=== PATIENT | female | born 1990 | race Caucasian/White ===

== ENCOUNTER → 2020-01-23 16:46 | Outpatient (CLI) | payer MEDICAID, SELFPAY ==
[2020-01-23 20:30] LABS: Coronavirus 19 IgG Antibody Negative (Negative); Coronavirus 19 IgM Antibody Negative (Negative)
== END ==
PROVIDERS: Visit Provider Family Medicine
DX: U07.1 COVID-19 (principal)
CPT/HCPCS: 36415; 86328; U0003

== ENCOUNTER → 2020-04-27 14:24 | Outpatient (CLI) | payer OTHER, SELFPAY ==
--- NOTE | 2020-04-27 14:24 | US_ITS ---
PROCEDURE: US TRANSVAGINAL CLINICAL INDICATION: ovarian cyst COMPARISON: No exams were available for comparison FINDINGS: There has been a prior hysterectomy. The right ovary is 3.8 x 1.8 x 3.5 cm. Left ovary is 3.4 x 2 x 2.3 cm. Hypoechoic areas present in the left ovary measuring 17 x 7 mm and could be due to a hemorrhagic cyst. There are low level internal echoes. Small follicles are present involving the right ovary. IMPRESSION: Suspect small left hemorrhagic ovarian cyst at 17 x 7 mm. Prior hysterectomy. Dictated by: Herbie Kaplan MD 04/27/2020 17:42 Herbie Kaplan MD in OV 04/27/2020 17:42
== END ==
PROVIDERS: Visit Provider Nurse Practitioner Obstetrics & Gynecology
DX: N83.209 Unspecified ovarian cyst, unspecified side (principal)
CPT/HCPCS: 76830

== ENCOUNTER → 2020-04-28 10:36 | Outpatient (CLI) | payer OTHER, SELFPAY ==
[2020-04-28 13:10] LABS: Alanine Aminotransferase 17 U/L (12-78); Albumin Level 4.2 g/dl (3.5-5.0); Alkaline Phosphatase 53 U/L (38-126); Aspartate Amino Transferase 28 U/L (14-36); Bilirubin,Direct 0.1 mg/dl (0.0-0.4); Bilirubin,Indirect 0.3 mg/dL (0.0-0.9); Bilirubin,Total 0.4 mg/dl (0.2-1.3); Bilirubin,Unconjugated 0.3 mg/dL (0.0-1.1); Total Protein,Serum 7.2 g/dl (6.3-8.2)
[2020-04-29 09:40] LABS: Hep A Ab, IgM Negative (Negative); Hepatitis B Core Antibody IgM Negative (Negative); Hepatitis B Surface Antigen Negative (Negative)
[2020-04-29 11:54] LABS: Hepatitis C Antibody >11.0 s/co ratio (0.0-0.9)
[2020-04-29 20:02] LABS: Cancer Antigen (CA) 125 8.7 U/mL (0.0-38.1)
== END ==
PROVIDERS: Visit Provider Nurse Practitioner Obstetrics & Gynecology
DX: B19.20 Unspecified viral hepatitis C without hepatic coma (principal); N83.209 Unspecified ovarian cyst, unspecified side; R10.2 Pelvic and perineal pain
CPT/HCPCS: 36415; 80074; 80076; 86316; 87522; 87902

== ENCOUNTER → 2020-05-03 10:34 | Outpatient (CLI) | payer OTHER, SELFPAY ==
[2020-05-03 16:25] LABS: Coronavirus 19 IgG Antibody Negative (Negative); Coronavirus 19 IgM Antibody Negative (Negative)
== END ==
DX: Z03.818 Encounter for observation for suspected exposure to other biological agents ruled out (principal)
CPT/HCPCS: 36415; 86328

== ENCOUNTER 2020-07-09 16:09 | Emergency (ER) | payer SELFPAY ==
[2020-07-09 16:15] VITALS: BP 135/85; PULSE 95; RESP 17; TEMP 36.6; O2SAT 98; BMI 30.7
[2020-07-09 16:35] VITALS: BP 135/85; PULSE 95; RESP 17; TEMP 36.6; O2SAT 98
--- NOTE | 2020-07-09 16:43 | HMH.EDUTC ---
[facility] Disposition Clinical Impression: Bilateral otitis media with effusion Disposition: Home, Self-Care Condition on Discharge: Good Instructions: DI for Otitis Media (Middle Ear Infection)-Child Prescriptions: Amoxicillin [Amoxicillin 875MG Tab] 875 mg PO Q12H #20 tab Transmission Status: Pending to [facility] Referrals: PCP,No [Primary Care Provider] - Time of Disposition: 16:47 Medical Decision Making - Edi Inquiry Pt receiving controlled substance: No Vital Signs: 07/09/20 16:15 07/09/20 16:35 Temperature 97.8 F 97.8 F Temperature Source Oral Pulse Rate 95 H Pulse Rate [Right Brachial] 95 H Respiratory Rate 17 17 Blood Pressure 135/85 Blood Pressure [Right Arm] 135/85 Blood Pressure Mean [Right Arm] 101 Blood Pressure Source [Right Arm] Automatic Cuff Blood Pressure Position [Right Arm] Sitting 02 Sat by Pulse Oximetry 98 Oxygen Delivery Method Room Air [facility] HPI - General Stated complaint: knot in throat and ear pain Time Seen by Provider: 07/09/20 16:43 Mode of Arrival: Ambulatory Source of Information: Patient Limitations: No Limitations Description of Symptoms (Recalled from Triage Doc. by RN): PATIENT C/O KNOT IN THROAT AND EAR PAIN X 3 DAYS HEENT Symptoms (Recalled from RN notes): Yes Resp Symptoms (Recalled from RN notes): No Skin Symptoms (Recalled from RN notes): No MS Symptoms (Recalled from RN notes): No Functional Status (Recalled from RN notes): WNL - History of Present Illness Provider Complaint: Left ear pain, sore throat, knot under chin since this am. No fever. Location: head Relieving factors: none Exacerbating factors: none Associated symptoms: denies other symptoms Treatments prior to arrival: none - Related Data Home Medications Medication Instructions Recorded Confirmed acetaminophen 325 mg tablet 325 mg PO QID PRN 04/20/20 04/20/20 buprenorphine 8 mg-naloxone 2 mg 2 film SUBLINGUAL DAILY 04/20/20 04/20/20 sublingual film ibuprofen 200 mg capsule 200 mg PO Q6H PRN 04/20/20 04/20/20 vitamin B complex 1 tab PO DAILY 04/20/20 04/20/20 Previous Rx's Medication Instructions Recorded Amoxicillin [Amoxicillin 875MG 875 mg PO Q12H #20 tab 07/09/20 Tab] Allergies Allergy/AdvReac Type Severity Reaction Status Date / Time Sulfa (Sulfonamide Allergy Mild Verified 07/09/20 16:31 Antibiotics) [SULFA (SULFONAMIDE ANTIBIOTICS)] - Worker's Comp Is this a Worker's Comp case?: No [facility] History - Hepatitis A Screen Drug use history?: No High risk sexual behaviors?: No History of sexually transmitted infection?: No Currently employed?: No Childcare worker?: No Do you have indoor plumbing?: Yes Do you have electricity?: Yes Attestation statement:: This patient has been screened for Hepatitis A risk factors. I have reviewed the patient's past medical history: Yes Laterality Cases: Bilateral: Myringotomy (Ear Tubes), Tonsillectomy Amputation: No Fractures: No - Social History Smoking Status: Current every day smoker Alcohol Intake: never Occupational Status: other Family Hx:: No significant family history ROS Obtained: Yes All systems reviewed & no additional complaints - Constitutional Constitutional: Denies fever(s) - ENT Ears, Nose, Mouth, and Throat: Reports otalgia, Reports mouth lesions, Reports pain with swallowing Physical Exam - General General appearance: alert, in no apparent distress - Head Head exam: atraumatic, normocephalic, normal inspection - Eye Eye exam: Present: normal appearance, PERRL, EOMI - ENT ENT exam: Present: normal exam, normal oropharynx, mucous membranes moist, normal external ear exam - Expanded ENT Exam TM/Canal exam: Bilateral TM: erythema - Neck Neck exam: Present: normal inspection, full ROM, trachea midline, lymphadenopathy. Absent: meningismus - Chest Chest inspection: Present: normal inspection, symmetric chest wall rise. Ab
== END 2020-07-09 16:50 | disposition home or self-care (01) ==
PROVIDERS: Emergency Provider Physician Assistant
DX: H65.93 Unspecified nonsuppurative otitis media, bilateral (principal); F17.210 Nicotine dependence, cigarettes, uncomplicated; Z88.2 Allergy status to sulfonamides
CPT/HCPCS: 99202; G0463

== ENCOUNTER 2020-09-18 15:28 | Emergency (ER) | payer OTHER, SELFPAY ==
[2020-09-18 15:48] VITALS: BP 149/88; PULSE 89; RESP 16; TEMP 36.9; O2SAT 99; BMI 33.9
--- NOTE | 2020-09-18 16:23 | HMH.EDUTC ---
[facility] [place] Disposition Clinical Impression: Bilateral otitis media with effusion Disposition: Home, Self-Care Condition on Discharge: Good Instructions: Middle Ear Infection Additional Instructions: Start antibiotic as soon as possible and be sure to take as ordered for full length of time even though he should start feeling better in 24-48 hours. Tylenol or Motrin as needed for pain or fever Encourage fluids, water, Gatorade, Powerade, Pedialyte if /toddler/child Warm compresses often helps when placed over ear Return immediately for new or worsening symptoms no noticeable improvement in 48-72 hours and in 10-14 days to ensure the ears are return to baseline. Follow-up with primary care Prescriptions: cephALEXin [Cephalexin 500mg Tab] 500 mg PO BID 7 Days #14 tab Prescription Printed Referrals: PCPConi [Primary Care Provider] - Time of Disposition: 16:26 Medical Decision Making - Edi Inquiry Pt receiving controlled substance: No Vital Signs: 09/18/20 15:48 Temperature 98.4 F Temperature Source Oral Pulse Rate [Right] 89 Respiratory Rate 16 Blood Pressure [Right Arm] 149/88 H Blood Pressure Mean [Right Arm] 108 02 Sat by Pulse Oximetry 99 [facility] [place] HPI - General Chief complaint: Urgent Treatment Center Stated complaint: ear pain Time Seen by Provider: 09/18/20 16:23 Mode of Arrival: Ambulatory Source of Information: Patient Limitations: No Limitations Description of Symptoms (Recalled from Triage Doc. by RN): L ear pain HEENT Symptoms (Recalled from RN notes): Yes (left ear) Resp Symptoms (Recalled from RN notes): No Skin Symptoms (Recalled from RN notes): No MS Symptoms (Recalled from RN notes): No Functional Status (Recalled from RN notes): na - History of Present Illness Provider Complaint: 30 yr old female presents for left ear pain. - Related Data Home Medications Medication Instructions Recorded Confirmed acetaminophen 325 mg tablet 325 mg PO QID PRN 04/20/20 07/20/20 buprenorphine 8 mg-naloxone 2 mg 2 film SUBLINGUAL DAILY 04/20/20 07/20/20 sublingual film ibuprofen 200 mg capsule 200 mg PO Q6H PRN 04/20/20 07/20/20 dietary supplement cap PO 07/20/20 07/20/20 Previous Rx's Medication Instructions Recorded Amoxicillin [Amoxicillin 875MG 875 mg PO Q12H #20 tab 01/22/21 Tab] metronidazole 500 mg tablet 500 mg PO BID 5 Days #10 tab 07/20/20 cephALEXin [Cephalexin 500mg Tab] 500 mg PO BID 7 Days #14 tab 09/18/20 Allergies Allergy/AdvReac Type Severity Reaction Status Date / Time Sulfa (Sulfonamide Allergy Mild Verified 09/18/20 15:51 Antibiotics) [SULFA (SULFONAMIDE ANTIBIOTICS)] - Worker's Comp Is this a Worker's Comp case?: No H History - Hepatitis A Screen Drug use history?: No High risk sexual behaviors?: No History of sexually transmitted infection?: No Currently employed?: No Childcare worker?: No Do you have indoor plumbing?: Yes Do you have electricity?: Yes Attestation statement:: This patient has been screened for Hepatitis A risk factors. I have reviewed the patient's past medical history: Yes Laterality Cases: Bilateral: Myringotomy (Ear Tubes), Tonsillectomy Amputation: No Fractures: No - Social History Smoking Status: Current every day smoker Alcohol Intake: never Occupational Status: other Family Hx:: No significant family history ROS Obtained: Yes Systems reviewed as appropriate & no additional complaints - Constitutional Constitutional: Reports system reviewed and no additional complaints, except as docu, Denies fatigue - Eyes Eyes: Reports system reviewed and no additional complaints, except as docu, Denies dry eyes - ENT Ears, Nose, Mouth, and Throat: Reports system reviewed and no additional complaints, except as docu, Reports otalgia, Denies sore throat - Cardiovascular Cardiovascular: Reports system reviewed and no additional complaints, except as docu, Denies chest pain - Respiratory Respirat
[2020-09-18 16:27] VITALS: BP 152/94; PULSE 88; RESP 14; TEMP 36.6
== END 2020-09-18 16:35 | disposition home or self-care (01) ==
PROVIDERS: Emergency Provider Nurse Practitioner Family
DX: H65.93 Unspecified nonsuppurative otitis media, bilateral (principal); F17.210 Nicotine dependence, cigarettes, uncomplicated; Z88.2 Allergy status to sulfonamides
CPT/HCPCS: 99202; G0463

== ENCOUNTER 2020-09-22 13:55 | Emergency (ER) | payer OTHER, SELFPAY ==
[2020-09-22 14:00] VITALS: BP 139/80; PULSE 86; RESP 19; TEMP 37; O2SAT 100; BMI 34.7
--- NOTE | 2020-09-22 14:24 | HMH.EDUTC ---
[facility] [place] Clinical Impression: Bilateral otitis media with effusion Disposition: Home, Self-Care Condition on Discharge: Good Instructions: Ofloxacin Otic Additional Instructions: Continue taking oral antibiotics as prescribed Use ear drops as prescribed Follow up with your Family Doctor if no improvement or any worsening of symptoms Over the counter Motrin may help with ear pain Return if needed Straight to ER if any life threatening symptoms Prescriptions: Ofloxacin [Floxin 0.3% OTIC Solution 5mL] 10 drops OT BID 10 Days #1 bottle Transmission Status: Received by [facility] Referrals: PCP,No [Primary Care Provider] - As needed Forms: Work/School Release Time of Disposition: 14:29 Medical Decision Making - Edi Inquiry Pt receiving controlled substance: No Edi was queried for this patient: No Vital Signs: 09/22/20 14:00 09/22/20 14:36 Temperature 98.6 F 98.6 F Temperature Source Oral Pulse Rate 86 Pulse Rate [Right Brachial] 86 Respiratory Rate 19 19 Blood Pressure 139/80 Blood Pressure [Right Arm] 139/80 Blood Pressure Mean [Right Arm] 99 Blood Pressure Source [Right Arm] Automatic Cuff Blood Pressure Position [Right Arm] Sitting 02 Sat by Pulse Oximetry 100 Oxygen Delivery Method Room Air [facility] [place] HPI - General Stated complaint: dx dbl ear infection, not any better Time Seen by Provider: 09/22/20 14:24 Mode of Arrival: Ambulatory Source of Information: Patient Limitations: No Limitations Description of Symptoms (Recalled from Triage Doc. by RN): PATIENT WAS TREATED FOR AN EAR INFECTION ON 09/18 AND DOES NOT FEEL ANY BETTER HEENT Symptoms (Recalled from RN notes): Yes Resp Symptoms (Recalled from RN notes): No Skin Symptoms (Recalled from RN notes): No MS Symptoms (Recalled from RN notes): No Functional Status (Recalled from RN notes): WNL - History of Present Illness Provider Complaint: Patient state that she was seen and treated on 09/18 and dx with bilateral ear infection and was prescribed Cephalexin State that she has been taking it as prescribed but still having pain and doesnt feel any better State that last night pain in both ears was throbbing so she come back in to see if there was something else she can take - Related Data Home Medications Medication Instructions Recorded Confirmed buprenorphine 8 mg-naloxone 2 mg 1.5 film SUBLINGUAL DAILY 11/03/20 04/07/21 sublingual film Previous Rx's Medication Instructions Recorded Ofloxacin [Floxin 0.3% OTIC 10 drops OT BID 10 Days #1 bottle 09/22/20 Solution 5mL] Allergies Allergy/AdvReac Type Severity Reaction Status Date / Time Sulfa (Sulfonamide Allergy Mild Verified 09/18/20 15:51 Antibiotics) [SULFA (SULFONAMIDE ANTIBIOTICS)] - Worker's Comp Is this a Worker's Comp case?: No [facility] History - Hepatitis A Screen Drug use history?: No High risk sexual behaviors?: No History of sexually transmitted infection?: No Currently employed?: No Childcare worker?: No Do you have indoor plumbing?: Yes Do you have electricity?: Yes Attestation statement:: This patient has been screened for Hepatitis A risk factors. I have reviewed the patient's past medical history: Yes Laterality Cases: Bilateral: Myringotomy (Ear Tubes), Tonsillectomy Amputation: No Fractures: No - Social History Smoking Status: Current every day smoker Alcohol Intake: never Occupational Status: other Family Hx:: No significant family history ROS Obtained: Yes All systems reviewed & no additional complaints, Yes Systems reviewed as appropriate & no additional complaints - Constitutional Constitutional: Reports system reviewed and no additional complaints, except as docu - ENT Ears, Nose, Mouth, and Throat: Reports otalgia Physical Exam - General General appearance: alert, in no apparent distress - Expanded ENT Exam TM/Canal exam: Bilateral TM: erythema, bulging Nose exam: Absent
[2020-09-22 14:36] VITALS: BP 139/80; PULSE 86; RESP 19; TEMP 37; O2SAT 100
== END 2020-09-22 14:39 | disposition home or self-care (01) ==
PROVIDERS: Emergency Provider Nurse Practitioner
DX: H65.23 Chronic serous otitis media, bilateral (principal); Z88.2 Allergy status to sulfonamides; F17.210 Nicotine dependence, cigarettes, uncomplicated
CPT/HCPCS: 99202; G0463

== ENCOUNTER 2021-01-31 13:15 | Emergency (ER) | payer OTHER, SELFPAY ==
[2021-01-31 14:40] VITALS: BP 173/112; PULSE 84; RESP 21; TEMP 36.7; O2SAT 97; BMI 42.0
[2021-01-31 15:15] VITALS: BP 132/74
--- NOTE | 2021-01-31 15:22 | HMH.EDUTC ---
[facility] [place] Clinical Impression: Encounter for laboratory testing for COVID-19 virus Disposition: Home, Self-Care Condition on Discharge: Good Instructions: DI for COVID-19 (Suspected or Confirmed ), Coronavirus Disease 2019, Preventing the Spread of Coronavirus Discharge Instructions Additional Instructions: *Monitor Temp, Over the counter Motrin or Tylenol as directed/as needed Tylenol every 4 hours and Motrin every 6 hours (as long as your family doctor has told you that you can take it) for fever or pain. and straight to ER if unable to lower temp less than 101.0 after medication given *Warm salt water gargles may help to soothe the throat *Throat Lozenges *Warm fluids like tea with honey may help to soothe the throat *Sleep elevated *Humidifier/Vaporizer Follow up IMMEDIATELY for new or worsening symptoms or no Noticeable improvement over the next 48-72 hours. 911 for difficulty breathing or swallowing You were tested for today for COVID19 your test result should be back in the next 24-48 hours, you may call to the [facility] to see if your test results are back in the next 48 hours [phone] [facility] hours are 9am-9pm You was given a handout with instructions for Self Quarantine and Self isolation for while you wait on test results and what to do if they are positive If you are positive the Health Dept will be contacting you also Make sure to take your Vitamins Vit. C Vit D and Zinc if you can take them Referrals: Provider,Referral, MD [Primary Care Provider] - As needed Forms: Work/School Release Time of Disposition: 15:25 Medical Decision Making - Edi Inquiry Pt receiving controlled substance: No Edi was queried for this patient: No Vital Signs: 01/31/21 14:40 01/31/21 15:15 Temperature 98.1 F Temperature Source Oral Pulse Rate [Left Brachial] 84 Respiratory Rate 21 Blood Pressure [Right Arm] 173/112 H 132/74 Blood Pressure Mean [Right Arm] 132 93 Blood Pressure Source [Right Arm] Automatic Cuff Automatic Cuff Blood Pressure Position [Right Arm] Sitting Sitting 02 Sat by Pulse Oximetry 97 Oxygen Delivery Method Room Air Orders (Tests/Meds): ORDERS Category Date Time Status Covid-19 Nasal PCR ([facility]) Routine Lab 01/31/21 14:30 Received Medical Decision Narrative: Patients initial blood pressure was elevated but changed cuff and rechecked multiple times and as recorded 132/74 [facility] [place] - General Stated complaint: covid test Time Seen by Provider: 01/31/21 15:22 Mode of Arrival: Ambulatory Source of Information: Patient Limitations: No Limitations Description of Symptoms (Recalled from Triage Doc. by RN): PATIENT REQUESTING COVID TEST HEENT Symptoms (Recalled from RN notes): No Resp Symptoms (Recalled from RN notes): No Skin Symptoms (Recalled from RN notes): No MS Symptoms (Recalled from RN notes): No Functional Status (Recalled from RN notes): WNL - History of Present Illness Provider Complaint: Patient state that she has been having headache, sore throat and nasal congestion for about 3-5 days States that she wanted to get tested for COVID and was needing a note for work - Related Data Home Medications Medication Instructions Recorded Confirmed buprenorphine 8 mg-naloxone 2 mg 1.5 film SUBLINGUAL DAILY 04/20/20 09/22/20 sublingual film Previous Rx's Medication Instructions Recorded Ofloxacin [Floxin 0.3% OTIC 10 drops OT BID 10 Days #1 bottle 09/22/20 Solution 5mL] Allergies Allergy/AdvReac Type Severity Reaction Status Date / Time Sulfa (Sulfonamide Allergy Mild Verified 09/18/20 15:51 Antibiotics) [SULFA (SULFONAMIDE ANTIBIOTICS)] - Worker's Comp Is this a Worker's Comp case?: No [facility] History - Hepatitis A Screen Drug use history?: No High risk sexual behaviors?: No History of sexually transmitted infection?: No Currently employed?: No Childcare worker?: No Do you have indoor plumbing?: Yes Do you have electri
[2021-01-31 15:30] VITALS: BP 132/74; PULSE 84; RESP 21; TEMP 36.7; O2SAT 97
== END 2021-01-31 15:33 | disposition home or self-care (01) ==
PROVIDERS: Emergency Provider Physician Assistant
DX: Z20.822 Contact with and (suspected) exposure to COVID-19 (principal); F17.210 Nicotine dependence, cigarettes, uncomplicated; Z88.2 Allergy status to sulfonamides
CPT/HCPCS: 99203; G0463; U0003

== ENCOUNTER → 2021-02-17 08:27 | Outpatient (CLI) | payer OTHER, SELFPAY ==
[2021-02-17 11:02] LABS: Free Thyroxine Index 2.9 ug/dL (5.93-13.13); T4 (Thyroxine) 11.5 ug/dl (5.53-11.0); Triiodothryronine (T3) Uptake 25 % (23.5-40.5)
[2021-02-17 11:16] LABS: Thyroid Stimulating Hormone 1.43 uIU/mL (0.465-4.68)
== END ==
PROVIDERS: Visit Provider Nurse Practitioner Family
DX: R94.6 Abnormal results of thyroid function studies (principal)
CPT/HCPCS: 36415; 84436; 84443; 84479

== ENCOUNTER → 2021-03-30 09:13 | Outpatient (CLI) | payer OTHER, SELFPAY | PROVIDERS: Visit Provider Family Medicine | DX: Z01.812 Encounter for preprocedural laboratory examination (principal) ==

== ENCOUNTER 2021-06-29 17:26 | Emergency (ER) | payer OTHER, SELFPAY ==
[2021-06-29 17:36] VITALS: BP 139/87; PULSE 107; RESP 20; TEMP 36.8; O2SAT 97; BMI 47.5
--- NOTE | 2021-06-29 18:19 | HMH.EDUTC ---
[facility] – [place] Clinical Impression: Abscess Disposition: Home, Self-Care Condition on Discharge: Good Instructions: Clindamycin, Mupirocin, DI for Skin Abscess Additional Instructions: *Start antibiotic(s) immediately and be sure to take as ordered for the FULL length of time although you may be feeling better or start to see improvement in the next 24-48 hours *Monitor closely. Outlined redness so that you can monitor easier. Follow up immediately for new or worsening symptoms including but not limited to redness, swelling, streaking from site fever or chills. *Warm compress 15 minutes 3-4 times day *Never squeeze or pop these on your own. Seek immediate medical attention next time this occurs *Monitor Temp. Tylenol every 4 hours as needed and ibuprofen every 6 hours as needed (as long as your primary care doctor has told you that it is ok to take both. For fever, aches, pain. ER if no less that 101 despite Tylenol and ibuprofen Follow up with your family doctor/primary care physician in the next 48-72 hours if no improvement if area gets worse Follow up for your wound culture results to make sure you are on the correct antibiotics Prescriptions: clindamycin HCL [Cleocin HCl] 300 mg PO TID #30 cap Transmission Status: Pending to [facility] Mupirocin Calcium [Mupirocin 2% Cream 15gm] 1 applicatio TP TID 10 Days #15 gm Transmission Status: Pending to [facility] Referrals: Joe Lehman MD [Primary Care Provider] - As needed Time of Disposition: 18:41 Medical Decision Making - Edi Inquiry Pt receiving controlled substance: No Edi was queried for this patient: No Vital Signs: 06/29/21 17:36 Temperature 98.3 F Temperature Source Oral Pulse Rate [Left] 107 H Respiratory Rate 20 Blood Pressure [Right Arm] 139/87 Blood Pressure Mean [Right Arm] 104 02 Sat by Pulse Oximetry 97 Orders (Tests/Meds): ED MEDICATIONS Discontinued Medications Generic Name Dose Route Start Last Admin Trade Name Freq PRN Reason Stop Dose Admin Clindamycin HCl 300 mg 06/29/21 18:37 Clindamycin 150mg Capsule PO 06/29/21 18:38 ONCE ONE ORDERS Category Date Time Status Wound Culture and Gram Stain Stat Micro 06/29/21 18:31 Ordered Medical Decision Narrative: medication discussed with pharmacy [facility] [place] HPI - General Stated complaint: POSSIBLE FEVER,barclay,kNOT L LEG Time Seen by Provider: 06/29/21 18:19 Mode of Arrival: Ambulatory Source of Information: Patient Limitations: No Limitations Description of Symptoms (Recalled from Triage Doc. by RN): pt presents with a red, swollen and hard area on her upper L thigh about the size of a fist. in the center there is a small white head. HEENT Symptoms (Recalled from RN notes): No Resp Symptoms (Recalled from RN notes): No Skin Symptoms (Recalled from RN notes): Yes MS Symptoms (Recalled from RN notes): No Functional Status (Recalled from RN notes): wnl - History of Present Illness Provider Complaint: Patient state that she has a history of abscesses States that she noticed she was having red area on her left upper thigh an as the day when on the redness continued State that she had a small hard area on the inside of the red area that looked like a pimple but she wasnt sure if that was a head or dry skin State that also she was around friend that recently tested positive for strep throat and wanted to get checked - Related Data Home Medications Medication Instructions Recorded Confirmed buprenorphine 8 mg-naloxone 2 mg 1.5 film SUBLINGUAL DAILY 04/20/20 09/22/20 sublingual film Previous Rx's Medication Instructions Recorded Ofloxacin [Floxin 0.3% OTIC 10 drops OT BID 10 Days #1 bottle 09/22/20 Solution 5mL] Mupirocin Calcium [Mupirocin 2% 1 applicatio TP TID 10 Days #15 gm 06/29/21 Cream 15gm] clindamycin HCL [Cleocin HCl] 300 mg PO TID #30 cap 06/29/21 Allergies Allergy/AdvReac Type Severity React
[2021-06-29 18:44] LABS: UTC Strep Screen (Rapid) Negative (Negative)
[2021-06-29 18:46] VITALS: BP 139/87; PULSE 107; RESP 20; TEMP 36.8
== END 2021-06-29 18:48 | disposition home or self-care (01) ==
PROVIDERS: Emergency Provider Nurse Practitioner; PCP Family Medicine
DX: L02.416 Cutaneous abscess of left lower limb (principal); F17.210 Nicotine dependence, cigarettes, uncomplicated; Z88.2 Allergy status to sulfonamides
CPT/HCPCS: 87070; 87077; 87186; 87205; 87880; 99203; G0463

== ENCOUNTER 2021-07-26 19:27 | Emergency (ER) | payer OTHER, SELFPAY ==
[2021-07-26 21:00] VITALS: BP 148/72; PULSE 122; RESP 22; TEMP 37.9; O2SAT 99; BMI 47.8
[2021-07-26 21:02] VITALS: BP 148/72; PULSE 122; RESP 22; TEMP 37.9; O2SAT 99; BMI 47.8
[2021-07-26 21:02] LABS: UTC Influenza A Antigen Negative (Negative); UTC Influenza B Antigen Negative (Negative)
--- NOTE | 2021-07-26 21:05 | HMH.EDUTC ---
[facility] – [place] Disposition Clinical Impression: Viral syndrome, Exposure to COVID-19 virus Pharyngitis Qualifiers: Pharyngitis/tonsillitis etiology: unspecified etiology Qualified Code(s): J02.9 - Acute pharyngitis, unspecified Disposition: Home, Self-Care Condition on Discharge: Good Instructions: DI for Strep Throat, DI for COVID-19 (Suspected or Confirmed ), Preventing the Spread of Coronavirus Discharge Instructions Additional Instructions: Drink plenty of fluids. Take tylenol or ibuprofen for pain or fever. Take the medications as directed. Follow up with your regular doctor. GO TO THE ER FOR ANY WORSENING SYMPTOMS Quarantine until you know the results of your covid-19 test. Notify your school or workplace of your results and follow their instructions regarding return to work/school. The cough medication (promethazine dm) will make you drowsy, so don't drive or operate heavy machinery after taking it. Prescriptions: Ibuprofen [Ibuprofen 600mg Tablet] 600 mg PO Q6HP PRN #30 tab PRN Reason: Mild Pain Transmission Status: Pending to [facility] Promethazine/Dextromethorphan [Promethazine-Dm Syrup] 5 ml PO Q6HP PRN #240 ml PRN Reason: Cough Transmission Status: Received by [facility] Ondansetron [Zofran 4mg ODT] 4 mg PO Q8HP PRN #20 tab PRN Reason: Nausea Transmission Status: Received by [facility] methylPREDNISolone [Medrol] 4 mg PO DIRECTED 6 Days #21 packet Transmission Status: Received by [facility] Azithromycin [Z-Wes 250mg Tab*] 250 mg PO UD DOSE PK #6 tab Transmission Status: Received by [facility] Referrals: Joe Lehman MD [Primary Care Provider] - Forms: Work/School Release Time of Disposition: 21:14 Medical Decision Making - Medical Records Medical records reviewed: No: I reviewed the patient's medical records. - Edi Inquiry Pt receiving controlled substance: No Vital Signs: 07/26/21 21:00 07/26/21 21:02 Temperature 100.3 F H 100.3 F H Temperature Source Oral Oral Pulse Rate [Left] 122 H 122 H Respiratory Rate Blood Pressure [Right Arm] 148/72 H 148/72 H Blood Pressure Mean [Right Arm] 97 97 02 Sat by Pulse Oximetry 99 99 - Lab Data Lab results reviewed: Yes: I reviewed the patient's lab results. Lab Results 07/26/21 20:47: Influenza Type A Ag Negative, Influenza Type B Ag Negative Orders (Tests/Meds): ED MEDICATIONS Discontinued Medications Generic Name Dose Route Start Last Admin Trade Name Allen PRN Reason Stop Dose Admin Ibuprofen 800 mg 07/26/21 21:13 07/26/21 21:16 Ibuprofen 400 Mg Tablet PO 07/26/21 21:14 800 mg ONCE ONE Administration Ondansetron HCl 4 mg 07/26/21 21:13 Ondansetron 4mg Odt SL 07/26/21 21:14 ONCE ONE ORDERS Category Date Time Status Covid-19 Nasal PCR ([facility]) Routine Lab 07/26/21 20:48 Received Rapid Strep Scrn Group A [Strep Scrn Group A (Rapid)] Lab 07/26/21 20:48 Received Stat [facility] [place] HPI - General Stated complaint: sore throat,SOA,JUAREZ,runny nose,lisa Time Seen by Provider: 07/26/21 21:05 - History of Present Illness Provider Complaint: She states that she has felt bad since yesterday. Today she started having a sore throat, chest tightness and nonproductive cough. She has body aches and nausea also. She has been fully vaccinated against covid-19. She has not had a flu shot. - Related Data Home Medications Medication Instructions Recorded Confirmed buprenorphine 8 mg-naloxone 2 mg 1.5 film SUBLINGUAL DAILY 04/20/20 09/22/20 sublingual film Previous Rx's Medication Instructions Recorded Ofloxacin [Floxin 0.3% OTIC 10 drops OT BID 10 Days #1 bottle 09/22/20 Solution 5mL] Mupirocin Calcium [Mupirocin 2% 1 applicatio TP TID 10 Days #15 gm 06/29/21 Cream 15gm] clindamycin HCL [Cleocin HCl] 300 mg PO TID #30 cap 06/29/21 Azithromycin [Z-Wes 250mg Tab*] 2
[2021-07-26 21:23] VITALS: BP 148/72; PULSE 122; RESP 22; TEMP 37.9
[2021-07-26 21:30] LABS: Strep Scrn Group A (Rapid) Negative (Negative)
== END 2021-07-26 21:25 | disposition home or self-care (01) ==
PROVIDERS: Emergency Provider Nurse Practitioner Family; PCP Family Medicine
DX: U07.1 COVID-19 (principal); J02.9 Acute pharyngitis, unspecified; F17.210 Nicotine dependence, cigarettes, uncomplicated; Z88.2 Allergy status to sulfonamides
CPT/HCPCS: 87430; 87804; 99203; C9803; G0463; U0003; U0005

== ENCOUNTER → 2021-09-22 13:18 | Outpatient (CLI) | payer OTHER, SELFPAY ==
--- NOTE | 2021-09-22 13:27 | XR_ITS ---
FINAL REPORT CLINICAL HISTORY: RT KNEE PAIN FINDINGS: RIGHT KNEE Three views of the right knee reveal no evidence of fracture or dislocation. The bony alignment is normal. The joint spaces are preserved. There is no evidence of joint effusion. No localized soft tissue abnormality is identified. IMPRESSION: No acute abnormality identified. Reviewed, Interpreted and Dictated by Gerald Castellon III, MD Transcribed by Marina Lagos Authenticated by Gerald Castellon III, MD on 09/22/2021 01:58:05 PM [facility]
--- NOTE | 2021-09-22 13:27 | XR_ITS ---
FINAL REPORT CLINICAL HISTORY: LOW BACK PAIN FINDINGS: LUMBAR SPINE 5 views of the lumbar spine were obtained. There is no evidence of fracture or dislocation. There is straightening of the normal lumbar curvature which could be due to positioning or muscle spasm. The vertebral alignment is normal. Disc spaces are preserved. No paraspinous soft tissue abnormalities identified. IMPRESSION: No acute bony abnormality. Straightening of the normal lumbar curvature which could be due to positioning or muscle spasm. Reviewed, Interpreted and Dictated by Gerald Castellon III, MD Transcribed by Marina Lagos Authenticated by Gerald Castellon III, MD on 09/22/2021 01:58:07 PM [facility]
== END ==
PROVIDERS: PCP Family Medicine; Visit Provider Family Medicine
DX: M54.50 Low back pain, unspecified (principal); R29.898 Other symptoms and signs involving the musculoskeletal system; M25.561 Pain in right knee
CPT/HCPCS: 72110; 73562

== ENCOUNTER → 2021-10-17 16:39 | Outpatient (CLI) | payer OTHER, SELFPAY ==
--- NOTE | 2021-10-17 16:47 | XR_ITS ---
PROCEDURE INFORMATION: Exam: XR Right Knee Exam date and time: 10/17/2021 4:50 PM Age: 31 years old Clinical indication: Right; Patient HX: Knee pain, popping sound, PT feels like it locks up TECHNIQUE: Imaging protocol: XR Right knee. Views: 1 or 2 views. COMPARISON: CR XR KNEE RT 3V 09/22/2021 1:35 PM FINDINGS: Bones/joints: Normal. Soft tissues: Normal. IMPRESSION: No acute findings.
== END ==
PROVIDERS: PCP Family Medicine; Visit Provider Family Medicine
DX: M25.561 Pain in right knee (principal)
CPT/HCPCS: 73560

== ENCOUNTER 2021-11-02 17:12 | Emergency (ER) | payer OTHER, SELFPAY ==
[2021-11-02 19:00] VITALS: BP 134/77; PULSE 78; RESP 19; TEMP 37.1; O2SAT 96; BMI 46.9
--- NOTE | 2021-11-02 19:31 | HMH.EDUTC ---
[facility] [place] Impression: Abscess Disposition: Home, Self-Care Condition on Discharge: Good Instructions: Clindamycin, DI for Skin Abscess Additional Instructions: *Start antibiotic(s) immediately and be sure to take as ordered for the FULL length of time although you may be feeling better or start to see improvement in the next 24-48 hours *Monitor closely. Outlined redness so that you can monitor easier. Follow up immediately for new or worsening symptoms including but not limited to redness, swelling, streaking from site fever or chills. *Warm compress 15 minutes 3-4 times day *Never squeeze or pop these on your own. Seek immediate medical attention next time this occurs *Monitor Temp. Tylenol every 4 hours as needed and ibuprofen every 6 hours as needed (as long as your primary care doctor has told you that it is ok to take both. For fever, aches, pain. ER if no less that 101 despite Tylenol and ibuprofen Follow up with your family doctor/primary care physician in the next 48-72 hours if no improvement Prescriptions: clindamycin HCL [Cleocin HCl] 300 mg PO Q8H 10 Days #30 cap Transmission Status: Pending to [facility] Mupirocin Calcium [Mupirocin 2% Cream 15gm] 1 applicatio TP TID 10 Days #15 gm Transmission Status: Pending to [facility] Referrals: Joe Lehman MD [Primary Care Provider] - As needed Time of Disposition: 19:39 Medical Decision Making - Edi Inquiry Pt receiving controlled substance: No Edi was queried for this patient: No Vital Signs: 11/02/21 19:00 Temperature 98.7 F Temperature Source Oral Pulse Rate [Right Brachial] 78 Respiratory Rate 19 Blood Pressure [Right Arm] 134/77 Blood Pressure Mean [Right Arm] 96 Blood Pressure Source [Right Arm] Automatic Cuff Blood Pressure Position [Right Arm] Sitting 02 Sat by Pulse Oximetry 96 Oxygen Delivery Method Room Air Orders (Tests/Meds): ED MEDICATIONS Generic Name Dose Route Start Last Admin Trade Name Freq PRN Reason Stop Dose Admin Clindamycin HCl 300 mg 11/02/21 19:38 Clindamycin 150mg Capsule PO 11/02/21 19:39 ONCE ONE [facility] [place] - General Stated complaint: SPOT ON BACK L LEG Time Seen by Provider: 11/02/21 19:31 Mode of Arrival: Ambulatory Source of Information: Patient Limitations: No Limitations Description of Symptoms (Recalled from Triage Doc. by RN): PATIENT C/O OPEN SORE TO BACK OF LEFT LEG X 2 DAYS HEENT Symptoms (Recalled from RN notes): No Resp Symptoms (Recalled from RN notes): No Skin Symptoms (Recalled from RN notes): Yes MS Symptoms (Recalled from RN notes): No Functional Status (Recalled from RN notes): WNL - History of Present Illness Provider Complaint: Patient states that she has a hard red spot on the back of her left upper leg that has a black area in the center States that nothing is draining from it but she has had these in the past and had to come get antibiotics for it States that she was worried that it would get bigger and she would have to have it opened so she came in to get it checked - Related Data Home Medications Medication Instructions Recorded Confirmed buprenorphine 8 mg-naloxone 2 mg 1.5 film SUBLINGUAL DAILY 04/20/20 09/22/20 sublingual film Previous Rx's Medication Instructions Recorded Ofloxacin [Floxin 0.3% OTIC 10 drops OT BID 10 Days #1 bottle 09/22/20 Solution 5mL] Mupirocin Calcium [Mupirocin 2% 1 applicatio TP TID 10 Days #15 gm 06/29/21 Cream 15gm] clindamycin HCL [Cleocin HCl] 300 mg PO TID #30 cap 06/29/21 Azithromycin [Z-Wes 250mg Tab*] 250 mg PO UD DOSE PK #6 tab 07/26/21 Ibuprofen [Ibuprofen 600mg 600 mg PO Q6HP PRN #30 tab 07/26/21 Tablet] Ondansetron [Zofran 4mg ODT] 4 mg PO Q8HP PRN #20 tab 07/26/21 Promethazine/Dextromethorphan 5 ml PO Q6HP PRN #240 ml 07/26/21 [Promethazine-Dm Syrup] methylPREDNISolone [Medrol] 4 mg PO DIRECTED 6 Days #21 07/26/21 packet Mupirocin Calc
[2021-11-02 19:40] VITALS: BP 134/77; PULSE 78; RESP 19; TEMP 37.1; O2SAT 96
== END 2021-11-02 19:45 | disposition home or self-care (01) ==
PROVIDERS: Emergency Provider Nurse Practitioner; PCP Family Medicine
DX: L02.416 Cutaneous abscess of left lower limb (principal); Z88.2 Allergy status to sulfonamides; F17.210 Nicotine dependence, cigarettes, uncomplicated
CPT/HCPCS: 99212; G0463

== ENCOUNTER → 2022-05-25 12:08 | Outpatient (CLI) | payer OTHER, SELFPAY ==
[2022-05-25 13:08] LABS: Basophils # 0.1 K/mm3 (0-0.2); Basophils % 0.7 % (0.1-2.0); Eosinophils # 0.2 K/mm3 (0.0-0.4); Eosinophils % 1.7 % (0.1-12.0); Hematocrit 41.5 % (37.0-47.0); Hemoglobin 13.5 g/dL (12.2-16.2); Lymphocytes # 2.7 K/mm3 (0.7-4.5); Lymphocytes % 26.4 % (10-50); Mean Corpuscular HGB Conc 32.6 g/dL (31.8-35.4); Mean Corpuscular Hemoglobin 31.2 pg (27.0-31.2); Mean Corpuscular Volume 95.6 fl (81-99); Monocytes # 0.4 K/mm3 (0.1-1.0); Monocytes % 3.4 % (1.7-9.3); Neutrophils # 6.9 K/mm3 (1.8-7.8); Neutrophils % 67.7 % (37.0-80.0); Platelet Count 303 K/mm3 (142-424); Red Blood Count 4.34 M/mm3 (4.20-5.40); Red Cell Distribution Width 13.4 % (11.5-17.5); White Blood Count 10.1 K/mm3 (4.8-10.8)
[2022-05-25 14:14] LABS: Alanine Aminotransferase 53 U/L (12-78); Albumin Level 4.4 g/dl (3.5-5.0); Alkaline Phosphatase 103 U/L (38-126); Anion Gap 12.8 mEq/L (5-15); Aspartate Amino Transferase 45 U/L (14-36); Bilirubin,Direct 0.2 mg/dl (0.0-0.4); Bilirubin,Indirect 0.1 mg/dL (0.0-0.9); Bilirubin,Total 0.3 mg/dl (0.2-1.3); Bilirubin,Unconjugated 0.1 mg/dL (0.0-1.1); Blood Urea Nitrogen 14 mg/dl (7-17); Carbon Dioxide 29 mmol/L (22.0-30.0); Chloride 101 mmol/L (98-107); Estimated Glomerular Filt Rate 142 ml/min (>60); GFR (African American) 172 ML/MIN (>60); Glucose 149 mg/dl (74-100); Potassium 3.8 mmoL/L (3.5-5.1); Sodium 139 mmol/L (136-145); Total Protein,Serum 7.2 g/dl (6.3-8.2)
[2022-05-25 14:35] LABS: 25-OH Vitamin D, Total 36.6 ng/mL (30-100)
[2022-05-25 14:48] LABS: Thyroid Stimulating Hormone 0.69 uIU/mL (0.465-4.68)
[2022-05-25 15:23] LABS: Vitamin B12 627 pg/mL (239-931)
[2022-05-25 15:26] LABS: Folate 9.38 ng/mL
[2022-05-30 04:09] LABS: Vitamin B6 12.4 ug/L (3.4-65.2)
== END ==
PROVIDERS: PCP Family Medicine; Visit Provider Family Medicine
DX: R53.83 Other fatigue (principal); R53.1 Weakness; E66.9 Obesity, unspecified; Z68.42 Body mass index [BMI] 45.0-49.9, adult
CPT/HCPCS: 36415; 80048; 80076; 82306; 82607; 82746; 84207; 84443; 85025

== ENCOUNTER → 2022-11-06 09:53 | Outpatient (CLI) | payer OTHER, SELFPAY ==
[2022-11-06 09:58] LABS: Microscopic, Urine URINE MICROSCOPIC (MICROSCOPIC)
[2022-11-06 10:26] LABS: Basophils # 0.1 K/mm3 (0-0.2); Basophils % 0.6 % (0.1-2.0); Eosinophils # 0.3 K/mm3 (0.0-0.4); Eosinophils % 3.7 % (0.1-12.0); Hematocrit 43.7 % (37.0-47.0); Hemoglobin 14.3 g/dL (12.2-16.2); Lymphocytes # 2.9 K/mm3 (0.7-4.5); Lymphocytes % 32.4 % (10-50); Mean Corpuscular HGB Conc 32.6 g/dL (31.8-35.4); Mean Corpuscular Hemoglobin 32.1 pg (27.0-31.2); Mean Corpuscular Volume 98.4 fl (81-99); Mean Platelet Volume 8.8 fl (7.4-10.4); Monocytes # 0.5 K/mm3 (0.1-1.0); Monocytes % 5.4 % (1.7-9.3); Neutrophils # 5.2 K/mm3 (1.8-7.8); Neutrophils % 57.9 % (37.0-80.0); Platelet Count 296 K/mm3 (142-424); Red Blood Count 4.44 M/mm3 (4.20-5.40); Red Cell Distribution Width 13.5 % (11.5-17.5)
[2022-11-06 10:38] LABS: Appearance,Urine CLEAR (Clear); Bilirubin,Urine Negative (Negative); Blood, Urine Negative (Negative); Color,Urine YELLOW (Yellow); Glucose,Urine (UA) Negative (Negative); Ketones,Urine Negative (Negative); Leukocyte Esterase,Urine Negative (Negative); Nitrate,Urine Negative (Negative); Protein,Urine Negative (Negative); Urobilinogen,Urine 0.2 EU/dl (0.2)
[2022-11-06 10:56] LABS: Alanine Aminotransferase 54 U/L (12-78); Albumin Level 4.4 g/dl (3.5-5.0); Alkaline Phosphatase 75 U/L (38-126); Aspartate Amino Transferase 57 U/L (14-36); Bilirubin,Indirect 0.5 mg/dL (0.0-0.9); Bilirubin,Total 0.5 mg/dl (0.2-1.3); Bilirubin,Unconjugated 0.5 mg/dL (0.0-1.1); Blood Urea Nitrogen 7 mg/dl (7-17); Calcium 9.4 mg/dl (8.4-10.2); Carbon Dioxide 27 mmol/L (22.0-30.0); Chloride 103 mmol/L (98-107); Chol/HDL Ratio 3.4 (1-3.5); Cholesterol 179 mg/dl (140-200); Estimated Glomerular Filt Rate 141 ml/min (>60); GFR (African American) 171 ML/MIN (>60); Glucose 106 mg/dl (74-100); HDL Cholesterol 52 mg/dl (40-60); Sodium 140 mmol/L (136-145); Total Protein,Serum 7.2 g/dl (6.3-8.2); Triglycerides 141 mg/dl (30-150); VLDL Cholesterol 28 mg/dL (0-40)
[2022-11-06 11:10] LABS: Direct LDL Cholesterol 101.28 mg/dL (100-129)
[2022-11-06 11:16] LABS: 25-OH Vitamin D, Total 38.2 ng/mL (30-100)
[2022-11-06 11:27] LABS: Bacteria,Urine Trace /lpf; WBC,Urine Occasional #/hpf (0-3)
[2022-11-06 11:30] LABS: Thyroid Stimulating Hormone 1.32 uIU/mL (0.465-4.68)
[2022-11-06 11:49] LABS: Hemoglobin A1C 5.4 % (4.0-6.0)
[2022-11-06 12:05] LABS: Vitamin B12 547 pg/mL (239-931)
[2022-11-06 12:10] LABS: Microalbumin < 6.000 mg/L (0-16.7)
[2022-11-06 12:11] LABS: Folate 8.83 ng/mL
== END ==
PROVIDERS: PCP Family Medicine; Visit Provider Family Medicine
DX: Z01.812 Encounter for preprocedural laboratory examination (principal); D64.9 Anemia, unspecified; E03.9 Hypothyroidism, unspecified; E11.9 Type 2 diabetes mellitus without complications; E78.5 Hyperlipidemia, unspecified; I10 Essential (primary) hypertension; M25.50 Pain in unspecified joint; R53.83 Other fatigue; Z13.29 Encounter for screening for other suspected endocrine disorder; Z13.1 Encounter for screening for diabetes mellitus; Z13.220 Encounter for screening for lipoid disorders
CPT/HCPCS: 36415; 80048; 80061; 80076; 81001; 82043; 82306; 82607; 82746; 83036; 84443; 85025

== ENCOUNTER 2023-08-08 13:46 | Emergency (ER) | payer OTHER, SELFPAY ==
[2023-08-08 16:16] VITALS: BP 126/66; PULSE 85; RESP 20; TEMP 37.8; O2SAT 97; BMI 32.5
--- NOTE | 2023-08-08 16:21 | ED_ITS ---
Discharge Plan Disposition Patient Disposition: Home, Self-Care Condition: Good Prescriptions Prescriptions: No Action buprenorphine-naloxone 8-2 mg tablet, sublingual 1 tab sublingual propranolol 10 mg tablet 10 mg PO chlorthalidone 25 mg tablet 25 mg PO lisinopril 20 mg tablet 20 mg PO metronidazole 500 mg tablet 500 mg PO BID 7 Days Qty: 14 1RF clindamycin HCl 300 MG capsule 300 mg PO Q8H 10 Days Qty: 30 0RF Referrals Follow up/Referrals: Joe Lehman MD [Primary Care Provider] - See instructions Activity Restrictions/Add. Instructions Additional Instructions/Restrictions: *Monitor Temp, Over the counter Motrin or Tylenol as directed/as needed Tylenol every 4 hours and Motrin every 6 hours (as long as your family doctor has told you that you can take it) for fever or pain. and straight to ER if unable to lower temp less than 101.0 after medication given *Warm salt water gargles may help to soothe the throat *Throat Lozenges? *Warm fluids like tea with honey may help to soothe the throat? *Sleep elevated *Humidifier/Vaporizer Over the counter Mucinex if you can take it for cough Your throat swab was sent for culture. Those results are typically sent to your primary care. Be sure to follow up in 2-3 days with your family doctor/primary care physician if no improvement so they can review those result and treat if necessary. If you don?t have a primary care doctor, I recommend you get one but in the mean time, you will have to return to a walk in clinic Follow up IMMEDIATELY for new or worsening symptoms or no Noticeable improvement over the next 48-72 hours. 911 for difficulty breathing or swallowing You were tested for today for Upper Respiratory Panel with COVID19 your test result should be back in the next 24hours, you may Check your Results on the [facility] My Health Portal if your COVID test is positive you must Quarantine for 5 days Clinical Impressions Clinical Impression: Viral syndrome Stand Alone Forms Stand Alone Forms: Work/School Release Instructions Patient Instructions: Sore Throat, DI for Fever (Symptom) -- Adult Discharge ED Provider: Katie Ramirez [facility] HPI General Stated complaint: sore throat, congestion, fever, body aches Mode of Arrival: Ambulatory Source of Information: Patient Limitations: No Limitations Time Seen by Provider: 08/08/23 16:21 Description of Symptoms (Recalled from Triage Doc. by RN): Requesting a COVID, strep and flu test. Complaint of fever, sore throat, chest congestion, headache and body aches. HEENT Symptoms (Recalled from RN notes): Yes Resp Symptoms (Recalled from RN notes): No Skin Symptoms (Recalled from RN notes): No MS Symptoms (Recalled from RN notes): No Functional Status (Recalled from RN notes): wnl History of Present Illness Provider Complaint: Patient states that she has been having cough, chest congestion, sinus congestion and fever on and off since yesterday States today she was still having fever and feeling achy all over so she came in wanting to get tested for COVID, Flu and Strep throat Related Data Home Medications Medication Instructions Recorded Confirmed buprenorphine 8 mg-naloxone 2 mg 1 tab sublingual 04/26/22 04/26/22 sublingual tablet chlorthalidone 25 mg tablet 25 mg PO 04/26/22 04/26/22 lisinopril 20 mg tablet 20 mg PO 04/26/22 04/26/22 propranolol 10 mg tablet 10 mg PO 04/26/22 04/26/22 Previous Rx's Medication Instructions Recorded clindamycin HCl 300 mg capsule 300 mg PO Q8H 10 days #30 caps 11/02/21 metronidazole 500 mg tablet 500 mg PO BID 7 days #14 tabs 10/30/22 Allergies Allergy/AdvReac Type Severity Reaction Status Date / Time Sulfa (Sulfonamide Allergy Mild Verified 04/26/22 09:11 Antibiotics) [SULFA (SULFONAMIDE ANTIBIOTICS)] Worker's Comp Is this a Worker's Comp case?: No [facility] Disclaimer: The information contained in this section may have been updated after the patient was seen, as this information can be updated by other users. Surgical History (Updated 04/26/22 @ 09:16 by SOHA Crocker) History of partial hysterectomy Hx of tonsillectomy Social History (Updated 04/26/22 @ 09:16 by SOHA Crocker) Smoking Status: Current every day smoker tobacco type: e-cigarettes alcohol intake: current substance use type: former substance user current occupational status: other Travel in the last 8 weeks: None ROS Obtained: Yes All systems reviewed & no additional complaints except as documented and Yes Systems reviewed as appropriate & no additional complaints except as documented Constitutional Constitutional: Reports system reviewed and no additional complaints, except as documented, Reports as per HPI, Reports body ache, Reports chills, Reports fever(s) and Reports headache(s) ENT Ears, Nose, Mouth, and Throat: Reports system reviewed and no additional complaints, except as documented, Reports as per HPI, Reports headache(s), Reports nasal congestion, Reports sinus pressure and Reports sore throat Cardiovascular Cardiovascular: Reports system reviewed and no additional complaints, except as documented and Reports as per HPI Respiratory Respiratory: Reports system reviewed and no additional complaints, except as documented and Reports as per HPI Gastrointestinal Gastrointestingal: Reports system reviewed and no additional complaints, except as documented and as per HPI Neurologic Neurologic: Reports headache(s) Physical Exam General General appearance: alert and in no apparent distress ENT ENT exam: Present mucous membranes moist Expanded ENT Exam Nose exam: Present sinus tenderness Throat exam: Present other (Pharyngeal erythema noted with PND) Respiratory Respiratory exam: Present normal lung sounds bilaterally; Absent respiratory distress or wheezes Cardiovascular Cardiovascular exam: Present regular rate, normal rhythm and normal heart sounds Neurological Exam Neurological exam: Present alert, oriented X3 and normal gait Medical Decision Making Edi Inquiry Pt receiving controlled substance: No Edi was queried for this patient: No Vital Signs: 08/08/23 16:16 Temperature 100.0 F H Temperature Source Oral Pulse Rate [Radial] 85 Respiratory Rate 20 Blood Pressure [Right Arm] 126/66 Blood Pressure Mean [Right Arm] 86 Blood Pressure Source [Right Arm] Automatic Cuff Blood Pressure Position [Right Arm] Sitting 02 Sat by Pulse Oximetry 97 Oxygen Delivery Method Room Air Lab Data Lab results reviewed: Yes I reviewed the patient's lab results.
[2023-08-08 16:30] LABS: Adenovirus,PCR Not Detected (NotDetected); Coronavirus 19, PCR Not Detected (NotDetected); Coronavirus 229E Not Detected (NotDetected); Coronavirus NL63 Not Detected (NotDetected); Coronavirus OC43 Not Detected (NotDetected); Coronovirus HKU1,PCR Not Detected (NotDetected); Human Metapneumovirus Not Detected (NotDetected); Influenza A, PCR Not Detected (NotDetected); Influenza AH1, 2009 Not Detected (NotDetected); Influenza AH1, PCR Not Detected (NotDetected); Influenza AH3,PCR Not Detected (NotDetected); Parainfluenza 1, PCR Not Detected (NotDetected); Parainfluenza 2, PCR Not Detected (NotDetected); Parainfluenza 3, PCR Not Detected (NotDetected); Parainfluenza 4, PCR Not Detected (NotDetected); Respiratory Syncytial Virus Not Detected (NotDetected); Rhinovirus/Enterovirus Not Detected (NotDetected)
[2023-08-08 16:58] LABS: UTC Strep Screen (Rapid) Negative (Negative)
[2023-08-08 17:15] VITALS: BP 126/66; PULSE 85; RESP 20; TEMP 37.8; O2SAT 97
[2023-08-08 19:17] LABS: Influenza B, PCR Detected (NotDetected)
== END 2023-08-08 17:16 | disposition home or self-care (01) ==
PROVIDERS: Emergency Provider Nurse Practitioner; PCP Family Medicine
DX: J10.1 Influenza due to other identified influenza virus with other respiratory manifestations (principal); R05.9 Cough, unspecified; R09.81 Nasal congestion; R50.9 Fever, unspecified; R07.0 Pain in throat; F17.290 Nicotine dependence, other tobacco product, uncomplicated
CPT/HCPCS: 87632; 87635; 87880; 99212; 99214; G0463

== ENCOUNTER 2023-12-17 10:05 | Outpatient (CLI) | payer OTHER, SELFPAY ==
[2023-12-17 10:35] LABS: Basophils # 0.1 K/mm3 (0-0.2); Basophils % 1.1 % (0.1-2.0); Eosinophils # 0.2 K/mm3 (0.0-0.4); Hematocrit 41.2 % (37.0-47.0); Hemoglobin 13.1 g/dL (12.2-16.2); Lymphocytes % 38.5 % (10-50); Mean Corpuscular HGB Conc 31.8 g/dL (31.8-35.4); Mean Corpuscular Hemoglobin 31.4 pg (27.0-31.2); Mean Corpuscular Volume 98.9 fl (81-99); Mean Platelet Volume 8.6 fl (7.4-10.4); Monocytes # 0.5 K/mm3 (0.1-1.0); Monocytes % 5.8 % (1.7-9.3); Neutrophils % 51.6 % (37.0-80.0); Platelet Count 256 K/mm3 (142-424); Red Blood Count 4.17 M/mm3 (4.20-5.40); Red Cell Distribution Width 13.5 % (11.5-17.5); White Blood Count 7.8 K/mm3 (4.8-10.8)
[2023-12-17 11:25] LABS: Alanine Aminotransferase 17 U/L (12-78); Albumin Level 4.1 g/dl (3.5-5.0); Albumin/Globulin Ratio 1.6 (1.1-1.8); Alkaline Phosphatase 64 U/L (38-126); Anion Gap 8.8 mEq/L (5-15); Aspartate Amino Transferase 25 U/L (14-36); Bilirubin,Total 0.4 mg/dl (0.2-1.3); Blood Urea Nitrogen 14 mg/dl (7-17); Calcium 9.7 mg/dl (8.4-10.2); Carbon Dioxide 34 mmol/L (22.0-30.0); Chloride 103 mmol/L (98-107); Chol/HDL Ratio 2.6 (1-3.5); Cholesterol 169 mg/dl (140-200); Estimated Glomerular Filt Rate 114 ml/min (>60); GFR (African American) 138 ML/MIN (>60); Globulin 2.5 g/dL (1.3-3.2); Glucose 101 mg/dl (74-100); HDL Cholesterol 64 mg/dl (40-60); Potassium 4.8 mmoL/L (3.5-5.1); Sodium 141 mmol/L (136-145); Total Protein,Serum 6.6 g/dl (6.3-8.2); Triglycerides 58 mg/dl (30-150); VLDL Cholesterol 12 mg/dL (0-40)
[2023-12-17 11:37] LABS: Direct LDL Cholesterol 74.43 mg/dL (100-129)
[2023-12-17 11:56] LABS: Thyroid Stimulating Hormone 1.03 uIU/mL (0.465-4.68)
== END 2023-12-17 23:59 | disposition home or self-care (01) ==
LOC: LAB 10:06
PROVIDERS: Visit Provider Nurse Practitioner Family
DX: R00.2 Palpitations (principal)
CPT/HCPCS: 36415; 80050; 80053; 80061; 84443; 85025

== ENCOUNTER 2024-08-20 06:59 | Outpatient (CLI) | payer OTHER, SELFPAY ==
[2024-08-20 07:08] LABS: Microscopic, Urine URINE MICROSCOPIC (MICROSCOPIC)
[2024-08-20 07:23] LABS: Basophils # 0.1 K/mm3 (0-0.2); Basophils % 1.5 % (0.1-2.0); Eosinophils % 30.3 % (0.1-12.0); Hematocrit 39.2 % (37.0-47.0); Hemoglobin 12.9 g/dL (12.2-16.2); Lymphocytes # 2.6 K/mm3 (0.7-4.5); Lymphocytes % 39.5 % (10-50); Mean Corpuscular HGB Conc 32.9 g/dL (31.8-35.4); Mean Corpuscular Hemoglobin 31.5 pg (27.0-31.2); Mean Corpuscular Volume 95.6 fl (81-99); Mean Platelet Volume 10.4 fl (7.4-10.4); Monocytes # 0.5 K/mm3 (0.1-1.0); Monocytes % 7.3 % (1.7-9.3); Neutrophils # 1.4 K/mm3 (1.8-7.8); Neutrophils % 21.2 % (37.0-80.0); Platelet Count 261 K/mm3 (142-424); Red Cell Distribution Width 12.4 % (11.5-17.5); White Blood Count 6.6 K/mm3 (4.8-10.8)
[2024-08-20 07:24] LABS: Appearance,Urine CLEAR (Clear); Bilirubin,Urine Negative (Negative); Blood, Urine Negative (Negative); Color,Urine YELLOW (Yellow); Glucose,Urine (UA) Negative (Negative); Ketones,Urine Negative (Negative); Leukocyte Esterase,Urine Negative (Negative); Nitrate,Urine Negative (Negative); Protein,Urine Negative (Negative); Specific Gravity, Urine 1.025 (1.005-1.030); Urobilinogen,Urine 0.2 EU/dl (0.2)
[2024-08-20 07:53] LABS: WBC,Urine Occasional #/hpf (0-3)
[2024-08-20 08:40] LABS: Alanine Aminotransferase 21 U/L (12-78); Albumin Level 4.5 g/dl (3.5-5.0); Alkaline Phosphatase 56 U/L (38-126); Anion Gap 9.5 mEq/L (5-15); Aspartate Amino Transferase 27 U/L (14-36); Bilirubin,Direct 0.1 mg/dl (0.0-0.4); Bilirubin,Indirect 0.4 mg/dL (0.0-0.9); Bilirubin,Total 0.5 mg/dl (0.2-1.3); Bilirubin,Unconjugated 0.4 mg/dL (0.0-1.1); Blood Urea Nitrogen 14 mg/dl (7-17); Calcium 9.4 mg/dl (8.4-10.2); Carbon Dioxide 31 mmol/L (22.0-30.0); Chloride 103 mmol/L (98-107); Chol/HDL Ratio 2.5 (1-3.5); Cholesterol 184 mg/dl (140-200); Estimated Glomerular Filt Rate 113 ml/min (>60); GFR (African American) 137 ML/MIN (>60); Glucose 99 mg/dl (74-100); HDL Cholesterol 73 mg/dl (40-60); Potassium 4.5 mmoL/L (3.5-5.1); Sodium 139 mmol/L (136-145); Total Protein,Serum 6.7 g/dl (6.3-8.2); Triglycerides 60 mg/dl (30-150); VLDL Cholesterol 12 mg/dL (0-40)
[2024-08-20 08:52] LABS: Direct LDL Cholesterol 87.77 mg/dL (100-129)
[2024-08-20 09:30] LABS: Vitamin B12 501 pg/mL (239-931)
[2024-08-20 09:54] LABS: Folate 9.78 ng/mL
[2024-08-20 11:32] LABS: Microalbumin < 6.000 mg/L (0-16.7)
[2024-08-20 11:33] LABS: Hemoglobin A1C 5.3 % (4.0-6.0)
== END 2024-08-20 23:59 | disposition home or self-care (01) ==
LOC: LAB 07:02
PROVIDERS: PCP Family Medicine; Visit Provider Family Medicine
DX: Z01.812 Encounter for preprocedural laboratory examination (principal); D64.9 Anemia, unspecified; E03.9 Hypothyroidism, unspecified; E11.9 Type 2 diabetes mellitus without complications; E78.5 Hyperlipidemia, unspecified; I10 Essential (primary) hypertension; M25.50 Pain in unspecified joint; R53.83 Other fatigue; Z13.29 Encounter for screening for other suspected endocrine disorder; Z13.1 Encounter for screening for diabetes mellitus; Z13.220 Encounter for screening for lipoid disorders
CPT/HCPCS: 36415; 80048; 80061; 80076; 81001; 82043; 82570; 82607; 82746; 83036; 84443; 85025

== ENCOUNTER 2024-10-14 10:24 | Outpatient (CLI) | payer OTHER, SELFPAY ==
--- NOTE | 2024-10-14 11:00 | US_ITS ---
PROCEDURE: US TRANSVAGINAL CLINICAL INDICATION: Rt Sided Pelvic Pain/Abdomen COMPARISON: US US TRANSVAGINAL from 04/27/2020 FINDINGS: Transvaginal sonographic images of the pelvis were obtained. UTERUS: The uterus is surgically absent. The vaginal vault is intact. LEFT OVARY: 2.7 cmx1.4cmx1.6cm with a volume of 3ml. There are several small peripheral follicles. RIGHT OVARY: 2.6 cmx 1.4cmx1.8 cm with a volume of 3.4ml. There are several small peripheral follicles. Both ovaries are seen and appear normal. Doppler flow to both ovaries are seen. There is no fluid in the cul-de-sac. IMPRESSION: 1. The uterus is surgically absent. The vaginal vault is intact. 2. Right ovary is seen and appears normal with a few small follicles. 3. Left ovary is seen and appears normal with a few small follicles. 4. No fluid in the cul-de-sac. Dictated by: Sharath Nicolas MD 10/14/2024 15:07 Sharath Nicolas MD in OV 10/14/2024 15:07
== END 2024-10-14 23:59 | disposition home or self-care (01) ==
LOC: RAD 10:24
PROVIDERS: PCP Family Medicine; Visit Provider Obstetrics & Gynecology
DX: R10.2 Pelvic and perineal pain (principal); R10.9 Unspecified abdominal pain
CPT/HCPCS: 76830

== ENCOUNTER 2025-02-06 09:09 | Outpatient (CLI) | payer OTHER, SELFPAY ==
--- OUTSIDE RECORDS SUMMARY | 2020-01-06 09:50 | XMS_ITS | Encounter Summary ---
Author Organization [facility] Address [address] [place] [address] Care Team Providers Care Assistant Casino Shift Manager Name Role Phone Joe Lehman MD Primary Care Provider [phone] Reason for Referral * Diagnostic Imaging (Routine) - Closed Specialty Diagnoses / Procedures Referred By Marquis gutierrez Referred To Contact Radiology Diagnoses Cysts of both ovaries Procedures US Non-ob Transvaginal Saurav Milan MD [facility] Phone: tel: Referral ID Status Reason Start Date Expiration Date Visits Re quested Visits Authorized [id number] Closed 12/23/2019 12/22/2020 1 1 Reason for Visit * Diagnostic Imaging (Routine) - Closed Specialty Diagnoses / Procedures Referred By Marquis gutierrez Referred To Contact Radiology Diagnoses Cysts of both ovaries Procedures US Non-ob Transvaginal Saurav Milan MD [facility] Phone: tel: Referral ID Status Reason Start Date Expiration Date Visits Re quested Visits Authorized [id number] Closed 12/23/2019 12/22/2020 1 1 Encounter Details Date Type Department Care Team (Latest Contact Info) Description 01/06/2020 9:50 AM EDT Hospital Encounter [facility] [phone] Cysts of both ovaries Social History Tobacco [...] Narrative 01/06/2020 12:27 PM EDT PAT NAME: PATRICIA TORRES MED REC#: [id number] DA: 1990 PAT GEND: F PAT TYPE: O EXAM TIM: [id number] REF PHYS SAURAV MILAN Indication ======== F/U [...] interim recommend repeat u/s in 4-6 weeks. Mental Retardation Nurse: Ivana Matamoros RDMD Physician: Katie Kelsey MD Electronically signed by: Katie Kelsey MD at: 12:27 Procedure Note Katie Kelsey MD - 01/06/2020 PAT NAME: PATRICIA TORRES MED REC#: [id number] DA: [id number] PAT GEND: F PAT TYPE: O EXAM TIM: [id number] REF PHYS SAURAV MILAN Indication ======== F/U [...] the interim recommend repeat u/s in 4-6weeks. Mental Retardation Nurse: Ivana Matamoros RDMD Physician: Katie Kelsey MD Electronically signed by: Katie Kelsey MD at: 12:27 Saurav Milan MD [facility] ORDERABLES Final R esult documented in this encounter Visit Diagnoses Diagnosis Cysts of both ovaries Other and unspecified ovarian cyst documented in this encounter Care Teams Assistant Casino Shift Manager Relationship Specialty Start Date End Date Joe Lehman MD [address] [place] [address] PCP - General Family Medicine 12/23/19 documented as of this encounter
--- OUTSIDE RECORDS SUMMARY | 2025-02-06 09:12 | XMS_ITS | Encounter Summary ---
Author Organization Healthcare Address [address] [place] [address] Care Team Providers Care B2B Sales Professional Name Role Phone Joe Lehman MD Primary Care Provider [phone] Encounter Details Date Type Department Care Team (Late st Contact Info) Description 03/08/2022 Community Orders Community Practice [address] [place] [address] Joe Lehman MD [address] [place] [address] Fatty liver (Primary Dx) Social History Tobacco Use Types Packs/Day Years Used Date Smoking Tobacco: Every Day Alcohol Use Standard Drinks/Week Comments Not Currently 0 (1 standard drink = 0.6 oz pure alcohol) Alcoholic Drinks/day: Former consumption of alcohol Comments Unknown Sex and Gender Information Value Date Recorded Sex Assigned at Not on file Legal Sex Female 8:28 PM EDT Gender Identity Not on file Sexual Orientation Not on file documented as of this encounter Plan of Treatment Not on file documented as of this encounter Visit Diagnoses Diagnosis Fatty liver- Primary Other chronic nonalcoholic liver disease documented in this encounter Care Teams B2B Sales Professional Relationship Specialty Start Date End Date Joe Lehman MD [address] [address] PCP - General 12/11/23 documented as of this encounter
--- OUTSIDE RECORDS SUMMARY | 2025-02-06 09:12 | XMS_ITS | Clinical Summary ---
Author Organization [employer] ([place], [place], [place], [place]) Address [address] [place] [address] Care Team Providers Care Marine Engineering Professor Name Role Phone Unavailable Primary Care Provider Unavailabl e Social History Tobacco Use Types Packs/Day Years Used Date Smoking Tobacco: Never Assessed Comments Unknown Sex and Gender Information Value Date Recorded Sex Assigned at Not on file Legal Sex Female 6:57 PM CDT Gender Identity Not on file Sexual Orientation Not on file Plan of Treatment Not on file
--- OUTSIDE RECORDS SUMMARY | 2025-02-06 09:12 | XMS_ITS | Clinical Summary ---
Author Organization [facility] Address [address] [place] [id number] Care Team Providers Care Dinkey Brakeman Name Role Phone Joe Lehman MD Primary Care Provider [phone] Allergies Active Allergy Reactions Criticality Noted Date Comments Sulfa Antibiotics Unknown - Low Severity 2019 Medications ibuprofen (ADVIL,MOTRIN) 800 MG tablet Take 800 mg by mouth Every 6 (Six) Hours As Needed for Mild Pain . Active buprenorphine-n aloxone (SUBOXONE) 8-2 MG per SL tablet Place 1.5 tablets under the tongue Daily. Active Active Problems Problem Noted Date Diagnosed Date Right ovarian cyst 01/06/2020 Social History Tobacco Use Types Packs/Day Years [...] e 03/29/2023 Family and Community Support Answer Rashad e Recorded Help with Day-to-Day Activities Not [...] on file Sexual Orientation Not on file Last Filed Vital Signs Vital Sign Reading Time Taken Comments Blood Pressure 132/82 01/06/2020 10:41 AM EDT Pulse - - Temperature 36.5 C (97.7 F) 01/06/2020 10:41 AM EDT Respiratory Rate - - Oxygen Saturation - - Inhaled Oxygen Concentration - - Weight 88.9 kg (196 lb) 01/06/2020 10:41 AM EDT Height 160.7 cm (5' 3.25 ) 01/06/2020 10:41 AM E DT Body Mass Index 34.45 01/06/2020 10:41 AM EDT Plan of Treatment Health Maintenance Due Date Last Done Comments Pneumococcal Vaccine 0-49 (1 of 2 - PCV) 2007 TDAP/TD VACCINES (1 - Tdap) 2007 ANNUAL PHYSICAL 12/23/2019 HEPATITIS C SCREENING 12/23/2019 Annual Gynecologic Pelvic and Breast Exam 12/23/2020 12/23/2019 COVID-19 Vaccine (1 - 2023- season) 2024 INFLUENZA VACCINE 03/18/2025 Insurance Care Teams Dinkey Brakeman Relationship Specialty Start Date End Date Joe Lehman MD [address] [place] [address] PCP - General Family Medicine 12/23/19
--- OUTSIDE RECORDS SUMMARY | 2025-02-06 09:12 | XMS_ITS | Encounter Summary ---
Author Organization Healthcare Address [address] [place] [address] Care Team Providers Care Field Service Representative Name Role Phone Joe Lehman MD Primary Care Provider [phone] Reason for Referral * Consultation (Routine) - Closed Specialty Diagnoses / Procedures Referred By Marquis gutierrez Referred To Contact Cardiology Diagnoses Palpitations Joe Lehman MD [address] [place] [address] Phone: tel: fax: Referral ID Status Reason Start Date Expiration Date V isits Requested Visits Authorized [id number] Closed Specialty Services Required 2023 12/26/2024 1 1 Encounter Details Date Type Department Care Team (Latest Contact Info) Description 2023 Community Orders Community Practice [address] [place] [address] Joe Lehman MD [address] [place] [address] Palpitations (Primary Dx) Social History Tobacco Use Types [...] as of this encounter Plan of Treatment Scheduled Referrals Name Type Priority Associated Diagnoses Order Schedule Ambulatory referral to Cardiology Outpatient Referral Routine Palpitations Expected: 2023 (Approximate), Expires: 12/25/2024 documented as of this encounter Visit Diagnoses Diagnosis Palpitations- Primary documented in this encounter Care Teams Field Service Representative Relationship Specialty Start Date End Date Joe Lehman MD [address] [place] [address] PCP - General 12/11/23 documented as of this encounter
--- OUTSIDE RECORDS SUMMARY | 2025-02-06 09:12 | XMS_ITS | Referral Summary ---
Author Organization [employer] ([place], [place], [place], [place]) Address [address] [place] [address] Care Team Providers Care Infrastructure Analyst Name Role Phone Unavailable Primary Care Provider [...]
--- OUTSIDE RECORDS SUMMARY | 2025-02-06 09:12 | XMS_ITS | Clinical Summary ---
Author Organization Healthcare Address [address] [place] [address] Care Team Providers Care Manager Stone Name Role Phone Jeo Lehman MD Primary Care Provider [phone] Allergies Active Allergy Reactions Criticality Noted Date Comments Sulfa Drugs Rash,Unknown - Patie nt states they do not know rxn details Low 11/26/2015 Medications rOPINIRole (Requip) 1 MG tablet Take 1 tablet (1 mg) by mouth if needed. Active tiZANidine (Zanaflex) 4 MG capsule Take 1 capsule (4 mg) by mouth if needed. Active buprenorphine-n aloxone (Suboxone) 8-[address] under the tongue 1 (one) time. 4 Active fluticasone (Flonase) 50 MCG/ACT nasal spray Administer 1 spray into each nostril if needed. 4 Active clindamycin (Cleocin) 300 MG capsule Take 1 capsule (300 mg) by mouth 2 (two) times a day. Twice a day for 7 days. 4 Active metoprolol succinate XL (Toprol-XL) 50 MG 24 hr tablet Take 1 tablet (50 mg) by mouth 1 (one) time each day. Do not crush or chew. 30 tablet 3 4 Active Active Problems Problem Noted Date Diagnosed Date Other fatigue 04/27/2024 Abscess 03/06/2024 Bilateral otitis media with effusion 03/06/2024 Exposure to COVID-19 virus 03/06/2024 Hypertension 03/06/2024 Irregular heart beat 03/06/2024 Pharyngitis 03/06/2024 Vaginitis 03/06/2024 Viral syndrome 03/06/2024 PVC (premature ventricular contraction) 01/06/20 Obesity (BMI 35.0-39.9 without comorbidity) 12/16 Screening cholesterol level 12/21/2023 Palpitations 12/21/2023 Immunizations Immunization Administration Dates Next Due [employer] COVID-19 Vaccine (Purple Cap) 12 + 04/19/2021,03/29/2021 Family History Medical History Relation Name Comments Hypertension Father Hypertension Mother Relation Name Status Comments Father Mother Social History Tobacco Use Types Packs/Day Years Used Date Smoking Tobacco: Never Smokeless Tobacco: Never Tobacco Cessation:Counseling Given: Not Answered Alcohol Use Standard Drinks/Week Comments Not Currently 0 (1 standard drink = 0.6 oz pure alcohol) Alcoholic Drinks/day: Former consumption of alcohol PHQ-2 Answer Date Recorded Patient Health Questionnaire-2 Score 0 04/17/2024 Comments No Sex and Gender Information Value Date Recorded Sex Assigned at Not on file Legal Sex Female 8:28 PM EDT Gender Identity Not on file Sexual Orientation Not on file Last Filed Vital Signs Vital Sign Reading Time Taken Comments Blood Pressure 117/80 12/27/2023 11:03 AM EDT Pulse 72 12/27/2023 11:03 AM EDT Temperature 36.7 C (98.1 F) 09/10/2017 11:27 AM EDT Respiratory Rate 18 12/27/2023 11:03 AM EDT Oxygen Saturation 97% 12/27/2023 11:03 AM EDT Inhaled Oxygen Concentration - - Weight 90.7 kg (200 lb) 04/17/2024 10:27 AM EDT Height 160 cm (5' 3 ) 04/17/2024 10:27 AM EDT Body Mass Index 35.43 04/17/2024 10:27 AM EDT Plan of Treatment Health Maintenance Due Date Last Done Comments [facility]-Infant/Child/Adol SDOH Screenings 1988 [facility]-Varicella Vaccines (1 of 2 - 13+ 2-dose series) 2001 [facility]- SDOH Screenings 2006 [facility]-Adult SDOH Screenings 2006 [facility]-DTaP,Tdap,and Td Vaccines (1 - Tdap) 2007 [facility]-Hepatitis B Vaccines (1 of 3 - 19+ 3-dose series) 2007 HPV Vaccines (1 - 3-dose SCDM series) 2015 [id number] Vaccine (3 - 2023-25 season) 2024 04/19/2021, 03/29/2021 [facility]-Influenza Vaccine (#1) 2025 [facility]-Depression Screening 04/17/2025 04/17/2024 [facility]-Zoster Vaccines (1 of 2) 2038 [facility]-HIV Screening Completed 07/18/2016 [facility]-Hepatitis C Screening Completed 12/14/2019 [facility]-Obesity Intervention Completed 024, 02/07/2024, 12/27/2023, Additional history exists [facility]-HIB Vaccines Aged Out No longer e ligible based on patient's age to complete this topic [facility]-Hepatitis A Vaccines Aged Out No longer eligible based on patient's age to complete this topic [facility]-IPV Vaccines Aged Out No longer e ligible based on patient's age to complete this topic [facility]-Pneumococcal Vaccine: Pediatrics (0 to 5 Years) and At-Risk Patients (6 to 49 Years) Aged Out No longer eligible based on patient's age to complete this topic [facility]-Rotavirus Vaccines Aged Out No lo nger eligible based on patient's age to complete this topic Procedures Procedure Name Priority Date/Time Associated Diagnosis Comments HEPATITIS C ANTIBODY - ED W/REFLEX TO HCV QUANT PCR Routine 12/14/2019 2:30 PM EDT HIV 1/2 ANTIBODY/ANTIGEN SCREEN WITH REFLEX TO HIV I/II DIFFERENTIATION Routine 07/18/2016 12:31 PM EST from Last 3 Months or Most Recently Relevant to Health Maintenance Results * Sylvia Hepatitis C Antibody (12/14/2019 2:30 PM EDT) Ibis Hepatitis C Ab POSITIVE This specimen is being sent for confirmation by PCR. Reference Range: Negative SUNQUEST 12/14/2019 2:30 PM EDT 12/14/2019 2:42 PM EDT us Aquilino Stanford MD LAB BLOOD ORDERABLES Final Result SUNQUEST * HIV 1 & 2 Antibody/Antigen Screen (07/18/2016 12:31 PM EST) HIV 1 Result NONREACTIVE Screening for HIV 1 and 2 antibodies is NONREACTIVE. No confirmatory testing is required. SUNQUEST 07/18/2016 12:3 1 PM EST 07/18/2016 1:36 PM EST [facility] Provider LAB BLOOD ORDERABLES Final R esult SUNQUEST from Last 3 Months or Most Recently Relevant to Health Maintenance Insurance [facility] Care Teams Manager Stone Relationship Specialty Start Date End Date Joe Lehman MD [address] [facility] [address] [place] [address] PCP - General 12/11/23
--- OUTSIDE RECORDS SUMMARY | 2025-02-06 09:12 | XMS_ITS | Patient Health Record ---
Author Organization [facility] Address [address] [facility] [address] [place] [address] Care Team Providers Care Alternative Dispute Resolution Mediator Name Role Phone Jessica Garcia Unavailable [phone] Allergies Allergen (clinical drug ingredient) Drug/Non Drug Allergy documented on EMR Reaction Allergy Type Onset Date Status sulfamethoxazole / trimethoprim SULFAMETHOXAZOLE-T RIMETHOPRIM Unspecified Drug Allergy 12/11/2018 Active Reason For Referral No Information Problems Problem Type SNOMED Code ICD Code Onset Dates Problem Status W/U Status Risk Notes Problem User of smokeless tobacco (142020171) Chewing tobacco use (Z72.0) 019 Active confirmed Cigarette smoker (5-9 cigarettes/day ) Problem Gynecological examination normal (15944363664729 4) Cervical smear, as part of routine gynecological examination (Z01.419) 019 Active confirmed Annual without abnormal findings Problem Exposure to sexually transmissible disorder (248830186) Chlamydia contact (Z20.2) 019 Active confirmed Contact with and (suspected) exposure to infections with a predominantly sexual mode of transmission Plan Of Treatment No Information Medical (General) History Medical History History ICD Code Obesity ALEVE 220 MG ORAL TABLET, ORAL Surgical History Surgery Date(Month/Year) Supracervical Hysterectomy for placenta accreta. 2008 cervix removed ? 2009 [place] teeth extracted as a child.
[2025-02-06 09:16] LABS: Microscopic, Urine URINE MICROSCOPIC (MICROSCOPIC)
[2025-02-06 09:37] LABS: Hematocrit 39.7 % (37.0-47.0); Hemoglobin 13.4 g/dL (12.2-16.2); Immature Granulocytes % 0.2 %; Mean Corpuscular HGB Conc 33.8 g/dL (31.8-35.4); Mean Corpuscular Hemoglobin 31.1 pg (27.0-31.2); Mean Corpuscular Volume 92.1 fl (81-99); Nucleated Red Blood Cells % 0 %; Platelet Count 260 K/mm3 (142-424); Red Blood Count 4.31 M/mm3 (4.20-5.40); Red Cell Distribution Width-SD 40.3 fL; White Blood Count 8.3 K/mm3 (4.8-10.8)
[2025-02-06 09:41] LABS: Bilirubin,Urine Negative (Negative); Color,Urine YELLOW (Yellow); Glucose,Urine (UA) Negative (Negative); Ketones,Urine Negative (Negative); Leukocyte Esterase,Urine Negative (Negative); PH,Urine 6.0 (5.0-8.5); Protein,Urine Negative (Negative); Specific Gravity, Urine 1.025 (1.005-1.030); Urobilinogen,Urine 0.2 EU/dl (0.2)
[2025-02-06 09:54] LABS: Bacteria,Urine Trace /lpf; Squamous Epithelial Cell,Urine Occasional #/hpf (0-5)
[2025-02-06 10:06] LABS: Alanine Aminotransferase 46 U/L (12-78); Albumin Level 4.4 g/dl (3.5-5.0); Alkaline Phosphatase 70 U/L (38-126); Anion Gap 14.7 mEq/L (5-15); Aspartate Amino Transferase 38 U/L (14-36); Bilirubin,Direct 0.0 mg/dl (0.0-0.4); Bilirubin,Indirect 0.5 mg/dL (0.0-0.9); Bilirubin,Total 0.5 mg/dl (0.2-1.3); Bilirubin,Unconjugated 0.7 mg/dL (0.0-1.1); Blood Urea Nitrogen 8 mg/dl (7-17); Calcium 9.5 mg/dl (8.4-10.2); Carbon Dioxide 27 mmol/L (22.0-30.0); Chloride 103 mmol/L (98-107); Cholesterol 176 mg/dl (140-200); Creatinine,Serum 0.50 mg/dl (0.52-1.04); Estimated Glomerular Filt Rate 140 ml/min (>60); GFR (African American) 169 ML/MIN (>60); Glucose 97 mg/dl (74-100); HDL Cholesterol 66 mg/dl (40-60); Potassium 4.7 mmoL/L (3.5-5.1); Sodium 140 mmol/L (136-145); Total Protein,Serum 7.1 g/dl (6.3-8.2); Triglycerides 100 mg/dl (30-150)
[2025-02-06 10:14] LABS: Hemoglobin A1C 5.3 % (4.0-6.0)
[2025-02-06 10:41] LABS: Thyroid Stimulating Hormone 1.45 uIU/mL (0.465-4.68)
[2025-02-06 11:00] LABS: Vitamin B12 499 pg/mL (239-931)
[2025-02-06 16:32] LABS: Folate 17.60 ng/mL
== END 2025-02-06 23:59 | disposition home or self-care (01) ==
LOC: LAB 09:10
PROVIDERS: PCP Family Medicine; Visit Provider Family Medicine
DX: Z01.812 Encounter for preprocedural laboratory examination (principal); Z13.220 Encounter for screening for lipoid disorders; Z13.29 Encounter for screening for other suspected endocrine disorder; Z13.1 Encounter for screening for diabetes mellitus; D64.9 Anemia, unspecified; E03.9 Hypothyroidism, unspecified; E11.9 Type 2 diabetes mellitus without complications; E78.5 Hyperlipidemia, unspecified; I10 Essential (primary) hypertension; M25.50 Pain in unspecified joint
CPT/HCPCS: 36415; 80048; 80061; 80076; 81001; 82043; 82570; 82607; 82746; 83036; 84443; 85025

== ENCOUNTER 2025-03-19 14:04 | Outpatient (CLI) | payer OTHER, SELFPAY ==
--- OUTSIDE RECORDS SUMMARY | 2020-01-06 09:50 | XMS_ITS | Encounter Summary ---
Author Organization [facility] Address [address] [place] [address] Care Team Providers Care Print Graphic Designer Name Role Phone Joe Lehman MD Primary Care Provider [phone] Reason for Referral * Diagnostic Imaging (Routine) - Closed Specialty Diagnoses / Procedures Referred By Marquis gutierrez Referred To Contact Radiology Diagnoses Cysts of both ovaries Procedures Non-ob Transvaginal Saurav Milan MD [address] [address] Phone: tel: fax: Referral ID Status Reason Start Date Expiration Date Visits Re quested Visits Authorized [id number] Closed 12/23/2019 12/22/2020 1 1 Reason for Visit * Diagnostic Imaging (Routine) - Closed Specialty Diagnoses / Procedures Referred By Marquis gutierrez Referred To Contact Radiology Diagnoses Cysts of both ovaries Procedures Non-ob Transvaginal Saurav Milan MD [address] [address] Phone: tel: fax: Referral ID Status Reason Start Date Expiration Date Visits Re quested Visits Authorized [id number] Closed 12/23/2019 12/22/2020 1 1 Encounter Details Date Type Department Care Team (Latest Contact Info) Description 01/06/2020 9:50 AM EDT Hospital Encounter [address] [address] Cysts of both ovaries Social History Tobacco Use Types Packs/Day Years Used Date Smoking Tobacco: Every Day Cigarettes Smokeless Tobacco: Never Alcohol Use Standard Drinks/Week Comments Not Currently 0 (1 standard drink = 0.6 oz pur e alcohol) Abuse Screen Answer Date Recorded Unsafe at Home or Work/School Not on file Feels Threatened by Someone? Not on file 05/2023 Does Anyone Keep You from Co ntacting Others or Doint Things Outside the Home? Not on file 03/29/2023 Physical Sign of Abuse Present Not on file 1 Housing Stability Answer Date Recorded Current Living Arrangements Not on file 03/18 Potentially Unsafe Housing Conditions Not on lisseth e 03/29/2023 Family and Community Support Answer Tim e Recorded Help with Day-to-Day Activities Not on file 03/29/2023 Lonely or Isolated Not on file 03/29/2023 Employment Answer Date Recorded Do you want help finding or keeping work or a brenda b? Not on file 03/29/2023 Disabilities Answer Date Recorded Concentrating, Remembering, or Making Decisions Difficulty Not on file 03/29/2023 Doing Errands Independently Difficulty Not on fi le 03/29/2023 Education Answer Date Recorded Help with school or training? Not on file Preferred Language Not on file 03/29/2023 Comments No Sex and Gender Information Value Date Recorded Sex Assigned at Not on file Legal Sex Female 4:04 PM EST Gender Identity Not on file Sexual Orientation Not on file documented as of this encounter Plan of Treatment Not on file documented as of this encounter Procedures Procedure Name Priority Date/Time Associated Diagnosis Comments US NON-OB TRANSVAGINAL Routine 01/06/2020 10:09 AM EDT Cysts of both ovaries documented in this encounter Results * US Non-ob Transvaginal (01/06/2020 10:09 AM EDT) Anatomical Region Laterality Modality Body Ultrasound 01/06/2020 11:0 3 AM EDT Narrative 01/06/2020 12:27 PM EDT PAT NAME: SHADY TORRESICA MED REC#: [id number] DA: 1990 PAT GEND: F PAT TYPE: O EXAM TIM: [id number] REF PHYS SAURAV MILAN Indication ======== F/U ovarian cysts History ====== Previous Outcomes 3 Para 3 Method ======= Voluson E6, Transvaginal ultrasound examination, Color Doppler flow performed, 3D ultrasound examination. View: Adequate view Uterus ====== Uterus details: Uterus and cervix are not seen, consistent with stated history. Right Ovary Rt ovary D1 55.5 mm Rt ovary D2 52.7 mm Rt ovary D3 41.6 mm Rt ovary Vol 63.7 cm Rt ovarian cyst(s): Cysts identified Rt ovarian cyst D1 47.0 mm Rt ovarian cyst D2 44.0 mm Rt ovarian cyst D3 37.0 mm Rt ovarian cyst mean 42.7 mm Rt ovarian cyst vol 40.064 cm Rt ovarian cyst findings: Complex, Mixed Echogenicity, bloodflow present in solid area. Left Ovary ========= Lt ovary: Normal Lt ovary D1 33.2 mm Lt ovary D2 26.1 mm Lt ovary D3 18.80 mm Lt ovary Vol 8.5 cm [place] ========= Normal Impression ========= Right complex ovarian cyst. There is a low index of suspicion for malignancy. Normal appearing left ovary. Recommendation If surgery is not performed in the interim recommend repeat u/s in 4-6 weeks. Inside Sales Professional: Ivana Matamoros RDMS Physician: Katie Klesey MD Electronically signed by: Katie Kelsey MD at: 12:27 Procedure Note Katie Kelsey MD - 01/06/2020 PAT NAME: PATRICIA TORRES [facility] REC#: [id number] DA: 1990 PAT GEND: F PAT TYPE: O EXAM TIM: [id number] REF PHYS SAURAV MILAN Indication ======== F/U ovarian cysts History ====== Previous Outcomes Gravida3 Para3 Method ======= Voluson E6, Transvaginal ultrasound examination, Color Doppler flowperformed, 3D ultrasound examination. View: Adequate view Uterus ====== Uterus details:Uterus and cervix are not seen, consistent with statedhistory. Right Ovary Rt ovary D155.5 mm Rt ovary D252.7 mm Rt ovary D341.6 mm Rt ovary Vol63.7 cm Rt ovarian cyst(s):Cysts identified Rt ovarian cyst D147.0 mm Rt ovarian cyst D244.0 mm Rt ovarian cyst D337.0 mm Rt ovarian cyst mean42.7 mm Rt ovarian cyst vol40.064 cm Rt ovarian cyst findings:Complex, Mixed Echogenicity, bloodflow presentin solid area. Left Ovary ========= Lt ovary:Normal Lt ovary D133.2 mm Lt ovary D226.1 mm Lt ovary D318.80 mm Lt ovary Vol8.5 cm [place] ========= Normal Impression ========= Right complex ovarian cyst. There is a low index of suspicion formalignancy. Normal appearing left ovary. Recommendation If surgery is not performed in the interim recommend repeat u/s in 4-6weeks. Inside Sales Professional: Ivana Matamoros RDND Physician: Katie Kelsey MD Electronically signed by: Katie Kelsey MD at: 12:[address] [facility] US ORDERABLES Final R esult documented in this encounter Visit Diagnoses Diagnosis Cysts of both ovaries Other and unspecified ovarian cyst documented in this encounter Care Teams Print Graphic Designer Relationship Specialty Start Date End Date Joe Lehman MD [address] [place] [address] PCP - General Family Medicine 12/23/19 documented as of this encounter
--- OUTSIDE RECORDS SUMMARY | 2025-03-19 14:08 | XMS_ITS | Encounter Summary ---
Author Organization Healthcare Address [address] [place] [address] Care Team Providers Care Tool Dresser Name Role Phone Joe Lehman MD Primary Care Provider [phone] Reason for Referral * Consultation (Routine) - Closed Specialty Diagnoses / Procedures Referred By Marquis gutierrez Referred To Contact Cardiology Diagnoses Palpitations Joe Lehman MD [address] [place] [address] Phone: tel: fax: Referral ID Status Reason Start Date Expiration Date V isits Requested Visits Authorized [id number] Closed Specialty Services Required 2023 12/26/2024 1 1 Encounter Details Date Type Department Care Team (Latest Contact Info) Description 2023 Community Orders Community Practice [address] [place] [address] Joe Lehman MD [address] [place] [address] Palpitations (Primary Dx) Social History Tobacco Use [...] Primary documented in this encounter Care Teams Tool Dresser Relationship Specialty Start Date End Date Joe Lehman MD [address] [place] [address] PCP - General 12/11/23 documented as of this encounter
--- OUTSIDE RECORDS SUMMARY | 2025-03-19 14:08 | XMS_ITS | Clinical Summary ---
Author Organization [facility] Address [address] [place] [id number] Care Team Providers Care Internet Cafe Manager Name Role Phone Joe Lehman MD Primary Care Provider [phone] Allergies Active Allergy Reactions Criticality Noted Date [...] Gynecologic Pelvic and Breast Exam 12/23/2020 12/23/2019 INFLUENZA VACCINE 01/16/2025 Insurance Care Teams Internet Cafe Manager Relationship Specialty Start Date End Date Joe Lehman MD [address] [place], [place] [id number] PCP - General Family Medicine 12/23/19
--- OUTSIDE RECORDS SUMMARY | 2025-03-19 14:08 | XMS_ITS | Clinical Summary ---
Author Organization Healthcare Address [address] [place] [address] Care Team Providers Care Rigging Loft Mechanic Name Role Phone Joe Lehman MD Primary Care Provider [phone] Allergies Active Allergy Reactions Criticality Noted Date [...] Noted Date Diagnosed Date Other fatigue 04/27/2024 Bilateral otitis media with effusion 03/06/2024 Hypertension 03/06/2024 Irregular heart beat 03/06/2024 Vaginitis 03/06/2024 Viral syndrome 03/06/2024 PVC (premature ventricular contraction) 07/21/20 24 Obesity (BMI 35.0-39.9 without comorbidity) 12/16 Screening cholesterol level 12/21/2023 Palpitations 12/21/2023 Resolved Problems Problem Noted Date Diagnosed Date Resolved Date Abscess 03/06/2024 03/08/2025 Exposure to COVID-19 virus 03/06/2024 0 03/08/2025 Pharyngitis 03/06/2024 03/08/2025 Immunizations Immunization Administration Dates Next Due [employer] COVID-19 Vaccine (Purple Cap) 12 + 04/19/2021,03/29/2021 [...] Health Maintenance Due Date Last Done Comments [facility]-/Child/Adol SDOH Screenings 1988 [facility]-Varicella Vaccines (1 of 2 - 13+ 2-dose series) 2001 [facility]- SDOH Screenings 2006 [facility]-Adult SDOH Screenings 2006 [facility]-DTaP,Tdap,and Td Vaccines (1 - Tdap) 2007 [facility]-Hepatitis B Vaccines (1 of 3 - 19+ 3-dose series) 2007 HPV Vaccines (1 - 3-dose SCDM series) 2015 [id number] Vaccine (3 - 2024- season) 2025 04/19/2021, 03/29/2021 [facility]-Influenza Vaccine (#1) 2025 [facility]-Depression [...] Recently Relevant to Health Maintenance Results * Ibis Hepatitis C Antibody (12/14/2019 2:30 PM EDT) Pathologist Jean Baumann Hepatitis C Ab POSITIVE This specimen is being sent for confirmation by PCR. Reference Range: Negative SUNQUEST 12/14/2019 2:30 PM EDT 12/14/2019 2:42 PM EDT us Aquilino Stanford MD LAB BLOOD ORDERABLES Final Result COLETTE * HIV 1 & 2 Antibody/Antigen Screen (07/18/2016 12:31 PM EST) HIV 1 Result NONREACTIVE Screening for HIV 1 and 2 antibodies is NONREACTIVE. No confirmatory testing is required. SUNQUEST 07/18/2016 12:3 1 PM EST 07/18/2016 1:36 PM EST us Historical Provider LAB BLOOD ORDERABLES Final R esult Performing Organization Address City/[facility]/ZIP Co de Phone Number [place]TT[place] from Last 3 Months or Most Recently Relevant to Health Maintenance Insurance ANTH Care Teams Rigging Loft Mechanic Relationship Specialty Start Date End Date Joe Lehman MD [address] [facility] [address] [place] [address] PCP - General 12/11/23
--- OUTSIDE RECORDS SUMMARY | 2025-03-19 14:08 | XMS_ITS | Encounter Summary ---
Author Organization Healthcare Address [address] [place] [address] Care Team Providers Care Nuclear Fuel Processing Technician Name Role Phone Joe Lehman MD Primary Care Provider [phone] Encounter Details Date Type Department Care Team (Late st Contact Info) Description 03/08/2022 Community Orders Community [facility] [address] [place] [address] Joe Lehman MD [address] [place] [id number] Fatty liver (Primary Dx) Social History Tobacco [...] disease documented in this encounter Care Teams Nuclear Fuel Processing Technician Relationship Specialty Start Date End Date Joe Lehman MD [address] [address] PCP - General 12/11/23 documented as of this encounter
--- OUTSIDE RECORDS SUMMARY | 2025-03-19 14:08 | XMS_ITS | Patient Health Record ---
Author Organization [facility], [place] Address [address] [facility] [address] [place] [address] Care Team Providers Care Editor Continuity And Script Name Role Phone Jessica Garcia Unavailable [phone] Allergies Allergen (clinical drug ingredient) Drug/Non Drug Allergy documented on EMR Reaction Allergy Type Onset Date Status sulfamethoxazole / trimethoprim SULFAMETHOXAZOLE-T RIMETHOPRIM Unspecified Drug Allergy 12/11/2018 Active Reason For Referral No Information Problems Problem Type SNOMED Code ICD Code Onset Dates Problem Status W/U Status Risk Notes Problem User of smokeless tobacco (300492716) Chewing tobacco use (Z72.0) 019 Active confirmed Cigarette smoker (5-9 cigarettes/day ) Problem Gynecological examination normal (63420035559781 4) Cervical smear, as part of routine gynecological examination (Z01.419) 019 Active confirmed Annual without abnormal findings Problem Exposure to sexually transmissible disorder (292540204) Chlamydia contact (Z20.2) 019 Active confirmed Contact with and (suspected) exposure to infections with a predominantly sexual mode of transmission Plan Of Treatment No Information Medical (General) History Medical History History ICD Code Obesity ALEVE 220 MG ORAL TABLET, ORAL Surgical History Surgery Date(Month/Year) Supracervical Hysterectomy for placenta accreta. 2008 cervix removed ? 2009 [place] teeth extracted as a child.
--- NOTE | 2025-03-19 14:09 | XR_ITS ---
FINAL REPORT CLINICAL HISTORY: cervicalgia COMPARISON: None FINDINGS: Three views of the cervical spine were obtained. There is no fracture present. There is no malalignment. There is mild reversal of the normal cervical lordosis. Minimal posterior osteophyte formation is noted at C5-6. IMPRESSION: No acute bony abnormality. Mild reversal of cervical lordosis. Reviewed, Interpreted and Dictated by Rahat Campos MD Transcribed by Lolita Macias Authenticated and [facility]
== END 2025-03-19 23:59 | disposition home or self-care (01) ==
LOC: RAD 14:06
PROVIDERS: PCP Family Medicine; Visit Provider Family Medicine
DX: M53.82 Other specified dorsopathies, cervical region (principal)
CPT/HCPCS: 72040